=== PATIENT | female | born 2000 | race Caucasian/White ===

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

== ENCOUNTER 2019-07-23 08:21 | Emergency (ER) | payer OTHER ==
[2019-07-23] MEDS ORDERED: BENADRYL 50 MG/ML IV ONE (08:38)
[2019-07-23] MEDS ORDERED: Reglan 10 MG/2 ML IV ONE (08:38)
[2019-07-23] MEDS ORDERED: Sodium Chloride 0.9% 1000 ML 1,000 ML IV STA (08:38)
--- NOTE | 2019-07-23 08:49 | ERPHSYRPT ---
- History of Present Illness Time Seen by Provider: 07/23/19 08:32 Historian: patient Exam Limitations: no limitations Patient Subjective Stated Complaint: Fever, chills, vomiting, nausea, lightheaded for past 2 days, 6 weeks Triage Nursing Assessment: Pt came in with her cousin, vitals wnl, skin N/W/D, afebrile, bilateral upper abdominal pain due to vomiting per pt, no edema Physician History: The patient is a 18-year-old currently 6 weeks 4 days estimated gestational age by transvaginal ultrasound dated July 19, 2019 with an estimated due date of 2019 is currently with a single intrauterine presents with a chief complaint of vomiting. She reports that she has been vomiting for the past 48 hours and had associated symptoms to include headache in addition to a fever and abdominal pain. She reports that her MAXIMUM TEMPERATURE was 101 Fahrenheit and the last time she had a fever was yesterday he is currently afebrile this morning. She nor 7 upper quadrant abdominal pain, consistent mainly the epigastrium that started after the vomiting. She notes having numerous episodes of nonbloody/nonbilious vomiting but denies diarrhea. She was seen at urgent care yesterday and was instructed that if she continues to have vomiting this morning that she should come to the emergency department. Her BUSINESS INTEGRATION MANAGER is Dr. Madhuri Kim. she tried to contact this morning to schedule follow-up with today but was instructed to come to the emergency department for further evaluation and management. The patient is not taking any medications, specifically in time medics for vomiting but reportedly takes vitamins. She denies vaginal discharge and vaginal bleeding is constipation. Currently she does not have a headache nor does she have any neck pain or photophobia. Timing/Duration: day(s) (2) Activities at Onset: none Quality: cramping Abdominal Pain Onset Location: epigastric Pain Radiation: no radiation Severity of Pain-Max: mild Severity of Pain-Current: mild Modifying Factors: Improves With: nothing Associated Symptoms: fever/chills, headache, nausea, vomiting, No back, No chest pain, No diaphoresis, No diarrhea, No shortness of breath, No syncope Allergies/Adverse Reactions: fluconazole [From Diflucan] Adverse Reaction (Verified 07/23/19 08:38) Home Medications: Levothyroxine Sodium [Euthyrox] 50 mcg PO DAILY 07/23/19 [History] Vits W-Ca,Fe,FA(<1Mg) [] 1 each PO DAILY 07/23/19 [History] Pyridoxine HCl (Vitamin B6) [Vitamin B-6] 50 mg PO DAILY 07/23/19 [History] Hx Tetanus, Diphtheria Vaccination/Date Given: Yes Hx Influenza Vaccination/Date Given: Yes (June 2019) Hx Pneumococcal Vaccination/Date Given: No - Review of Systems Constitutional: Fever, Chills Eyes: No Symptoms Ears, Nose, & Throat: Other (Rhinorrhea) Respiratory: No Cough, No Cyanosis, No Dyspnea, No Dyspnea on Exertion (EPSTEIN) Cardiac: No Chest Pain, No Edema, No Palpitations, No Syncope Abdominal/Gastrointestinal: Abdominal Pain, Nausea, Vomiting, Appetite Changes, No Diarrhea, No Constipation, No Hematemesis Genitourinary Symptoms: , No Dysuria, No Frequency, No Hematuria, No Hesitancy, No Flank Pain, No Vaginal Bleeding, No Vaginal Discharge, No Vaginal Itching Musculoskeletal: No Symptoms Skin: No Symptoms Neurological: No Symptoms Psychological: No Symptoms All Other Systems: Reviewed and Negative - Past Medical History Pertinent Past Medical History: Yes Neurological History: Migraines ENT History: No Pertinent History Cardiac History: No Pertinent History Respiratory History: Asthma Endocrine Medical History: No Pertinent History Musculoskeletal History: Fractures GI Medical History: Gallbladder Disease History: No Pertinent History Psycho-Social History: No Pertinent History Female Reproductive Disorders: No Pertinent History Other Medical History: right hip pain chronic - Past Surgical History Past Surgical History: Yes Neuro Surgical History: No Pertinent History Cardiac: No Pertinent History Respiratory: No Pertinent History Gastrointestinal: Cholecystectomy Genitourinary: No Pertinent History Musculoskeletal: Orthopedic Surgery Female Surgical History: No Pertinent History Other Surgical History: right hip - Social History Smoking Status: Never smoker Exposure to second hand smoke: No Drug Use: none Patient Lives Alone: No - Female History Hx Now: Yes Expected Date of Delivery: 03/13/20 - Nursing Vital Signs Nursing Vital Signs: Initial Vital Signs Temperature 97.7 F 07/23/19 08:27 Pulse Rate 97 H 07/23/19 08:27 Blood Pressure 130/85 07/23/19 08:27 O2 Sat by Pulse Oximetry 97 07/23/19 08:27 Pain Scale Pain Intensity 4 - Physical Exam General Appearance: no apparent distress Eye Exam: PERRL/EOMI, eyes nml inspection Ears, Nose, Throat Exam: normal ENT inspection, TMs normal, pharynx normal, moist mucous membranes, No TM abnormal (R), No TM abnormal (L), No pharyngeal erythema, No tonsillar exudate Neck Exam: normal inspection, No meningismus Respiratory Exam: normal breath sounds, lungs clear, airway intact, No chest tenderness, No respiratory distress, No diminished breath sounds, No accessory muscle use, No prolonged expirations Cardiovascular Exam: regular rate/rhythm, normal heart sounds, normal peripheral pulses, capillary refill <2 sec, pulse deficit, No edema Gastrointestinal/Abdomen Exam: soft, tenderness, other (Mild epigastric tenderness), No distention, No mass, No guarding, No ecchymosis, No pulsatile mass, No rebound, No hernia Pelvic Exam: not done Rectal Exam: deferred Back Exam: normal inspection Extremity Exam: normal inspection Neurologic Exam: alert, oriented x 3, cooperative Skin Exam: normal color, warm, dry, No petechiae, No jaundice, No abrasion, No cyanosis, No diaphoresis SpO2 Interpretation: normal SpO2: 97 O2 Delivery: Room Air - Course Nursing assessment & vital signs reviewed: Yes Ordered Tests: Active Orders 24 hr Category Date Time Status IV Insertion STAT Care 07/23/19 08:38 Active BMP Stat Lab 07/23/19 08:38 Completed CBC W DIFF Stat Lab 07/23/19 08:38 Completed Hepatic Function Panel Stat Lab 07/23/19 08:38 Completed LIPASE Stat Lab 07/23/19 08:38 Completed Medication Summary Discontinued Medications Generic Name Dose Route Start Last Admin Trade Name Kush PRN Reason Stop Dose Admin Diphenhydramine HCl 12.5 mg 07/23/19 08:38 07/23/19 09:07 Benadryl 50 Mg/Ml IV 07/23/19 08:39 12.5 mg STAT ONE Administration Diphenhydramine HCl Confirm 07/23/19 09:04 Benadryl 50 Mg/Ml Administered 07/23/19 09:05 Dose 50 mg .ROUTE .STK-MED ONE Sodium Chloride 1,000 mls @ 999 mls/hr 07/23/19 08:38 07/23/19 10:18 Sodium Chloride 0.9% 1000 Ml IV 07/23/19 09:38 Infused .Q1H1M STA Infusion Sodium Chloride Confirm 07/23/19 09:05 Sodium Chloride 0.9% 1000 Ml Administered 07/23/19 09:06 Dose 1,000 mls @ ud .ROUTE .STK-MED ONE Metoclopramide HCl 10 mg 07/23/19 08:38 07/23/19 09:07 Reglan 10 Mg/2 Ml IV 07/23/19 08:39 10 mg STAT ONE Administration Metoclopramide HCl Confirm 07/23/19 09:05 Reglan 10 Mg/2 Ml Administered 07/23/19 09:06 Dose 10 mg .ROUTE .STK-MED ONE Lab/Rad Data: Laboratory Result Diagrams 07/23/19 08:38 07/23/19 08:38 Laboratory Results 07/23/19 07/23/19 Range/Units 08:38 08:38 WBC 8.0 (4.0-10.5) K/mm3 RBC 4.68 (4.1-5.4) M/mm3 Hgb 13.8 (12.0-16.0) gm/dl Hct 40.6 (35-47) % MCV 86.8 (78-100) fl MCH 29.5 (26-32) pg MCHC 34.0 (32-36) g/dl RDW 13.1 (11.5-14.0) % Plt Count 268 (150-450) K/mm3 MPV 10.2 H (6-9.5) fl Gran % 71.8 H (36.0-66.0) % Eos # (Auto) 0.04 (0-0.5) Absolute Lymphs (auto) 1.67 (1.0-4.6) Absolute Monos (auto) 0.53 (0.0-1.3) Lymphocytes % 21.0 L (24.0-44.0) % Monocytes % 6.6 (0.0-12.0) % Eosinophils % 0.5 (0.00-5.0) % Basophils % 0.1 (0.0-0.4) % Absolute Granulocytes 5.72 (1.4-6.9) Basophils # 0.01 (0-0.4) Sodium 140 (137-145) mmol/L Potassium 3.9 (3.5-5.1) mmol/L Chloride 107 (98-107) mmol/L Carbon Dioxide 22 (22-30) mmol/L Anion Gap 14.6 (5-15) MEQ/L BUN 12 (7-17) mg/dL Creatinine 0.53 (0.52-1.04) mg/dL Estimated GFR > 60.0 ML/MIN Glucose 96 (74-106) mg/dL Calcium 9.8 (8.4-10.2) mg/dL Total Bilirubin 0.70 (0.2-1.3) mg/dL Direct Bilirubin 0.3 (0.0-0.4) mg/dL AST 32 (14-36) U/L ALT 35 (0-35) U/L Alkaline Phosphatase 76 (38-126) U/L Serum Total Protein 7.9 (6.3-8.2) g/dL Albumin 4.5 (3.5-5.0) g/dL Lipase 158 (23-300) U/L - Progress Progress: improved Progress Note: 07/23/19 09:02 The patient is nontoxic in appearance. Her abdominal exam is relatively benign. I suspect the patient's vomiting he complains of a fever and headache are likely viral in origin she has no signs of meningismus. Currently, she is afebrile emergency department and otherwise has normal vitals with the exception of some elevated blood pressure which may be related to anxiety or exertional given and she wishes return to the emergency department to be evaluated. I went and checked screening labs to include CBC, BMP LFTs and lipase to make sure she is no evidence of any other joint abnormalities. In the meantime, the demonstrated fluids in the form of normal saline antimanic in the form of Reglan and Benadryl. I suspect the patient will likely end up being discharged from emergency department to follow with her BUSINESS INTEGRATION MANAGER as an outpatient. 07/23/19 09:59 the patient was reassessed and her nausea completely resolved. Her abdominal pain has improved and on reassessment she had no significant tenderness, specifically with no right lower quadrant tenderness to suggest appendicitis. I'll discharge the patient with a prescription for Vivienne capsules, Reglan, and Vit B6 and instructed to follow up as scheduled with her BUSINESS INTEGRATION MANAGER that is reported later today at 11:15 AM. 07/23/19 17:25 Counseled pt/family regarding: lab results, diagnosis, need for follow-up - Departure Departure Disposition: Home Clinical Impression: Nausea and vomiting during , Viral syndrome Condition: Stable Critical Care Time: No Referrals: CASSI MAYERS [Primary Care Provider] - Instructions: Nausea -- Adult, Vomiting -- Adult Additional Instructions: Please follow up with her OB/2 and scheduled later today at 11:15, specifically Dr. Dhaliwal. Please refer to fluid intake her medicine as prescribed to include your vitamins. Plan of Treatment: See progress section of note for MDM. Patient likely suffering from N/V secondary to morning sickness superimposed with possible viral GI infection that is now resolving. Labs reviewed and relatively reassuring. Prescriptions: Metoclopramide HCl 10 mg [Reglan 10 MG] 10 mg PO [id number] PRN #10 tablet PRN Reason: nausea and vomiting Vivienne Root/Pyridoxine HCl(B6) [Vicectin 25-325 mg Capsule] 1 each PO Q6-8HPRN PRN #60 capsule PRN Reason: Anxiety
[2019-07-23] MEDS ORDERED: BENADRYL 50 MG/ML ONE (09:04)
[2019-07-23] MEDS ORDERED: Sodium Chloride 0.9% 1000 ML 1,000 ML ONE (09:05)
[2019-07-23] MEDS ORDERED: Reglan 10 MG/2 ML ONE (09:05)
[2019-07-23 09:09] LABS: Absolute Neutrophil Ct (ANC) 5.72 (1.4-6.9); BASOPHIL % 0.1 % (0.0-0.4); Basophil (Absolute #) 0.01 (0-0.4); Eosinophil % 0.5 % (0.00-5.0); Eosinophil (Absolute #) 0.04 (0-0.5); Hematocrit 40.6 % (35-47); Hemoglobin 13.8 gm/dl (12.0-16.0); Lymphocyte (Absolute #) 1.67 (1.0-4.6); Mean Cell Volume 86.8 fl (78-100); Mean Corpuscular Hemoglobin 29.5 pg (26-32); Mean Platelet Volume 10.2 fl (6-9.5); Monocyte (Absolute #) 0.53 (0.0-1.3); Monocytes % 6.6 % (0.0-12.0); Neutrophil % 71.8 % (36.0-66.0); Platelet Count 268 K/mm3 (150-450); Red Blood Count 4.68 M/mm3 (4.1-5.4); Red Cell Distribution Width 13.1 % (11.5-14.0)
[2019-07-23 09:37] LABS: ALBUMIN 4.5 g/dL (3.5-5.0); ALKALINE PHOSPHATASE 76 U/L (38-126); ANION GAP 14.6 MEQ/L (5-15); BLOOD UREA NITROGEN 12 mg/dL (7-17); CHLORIDE 107 mmol/L (98-107); Calcium 9.8 mg/dL (8.4-10.2); Carbon Dioxide 22 mmol/L (22-30); Creatinine 1 0.53 mg/dL (0.52-1.04); Direct Bilirubin 0.3 mg/dL (0.0-0.4); Glucose 96 mg/dL (74-106); LIPASE 158 U/L (23-300); Potassium 3.9 mmol/L (3.5-5.1); SGOT/AST 32 U/L (14-36); SGPT/ALT 35 U/L (0-35); SODIUM 140 mmol/L (137-145); Total Protein 7.9 g/dL (6.3-8.2)
[2019-07-23 10:05] VITALS: O2SAT 97
[2019-07-23 10:14] VITALS: BP 109/70; PULSE 84
== END 2019-07-23 10:18 | disposition home or self-care (01) ==
LOC: ED 08:21
DX: O21.0 Mild hyperemesis gravidarum (principal); R42 Dizziness and giddiness; B34.9 Viral infection, unspecified
CPT/HCPCS: 36415; 80048; 80076; 83690; 85025; 96360; 96374; 96375; 99284; J1200

== ENCOUNTER 2019-09-27 14:14 | Emergency (ER) | payer OTHER ==
[2019-09-27 14:31] VITALS: BP 129/78; O2SAT 99
[2019-09-27] MEDS ORDERED: Sodium Chloride 0.9% 1000 ML 1,000 ML IV STA ×2 (14:37→14:44)
[2019-09-27] MEDS ORDERED: Sodium Chloride 0.9% 1000 ML 1,000 ML ONE ×2 (14:41→15:59)
--- NOTE | 2019-09-27 14:42 | ERPHSYRPT ---
- History of Present Illness Time Seen by Provider: 09/27/19 14:30 Historian: patient Exam Limitations: no limitations Patient Subjective Stated Complaint: Pt is 16 weeks and began having lower abdominal cramping last night which has continued today, rates pain 6/10, denies bleeding, reports having a significant amount of white discharge, expected date of delivery 03/13/[address] Patiño Triage Nursing Assessment: Pt brought to the ER by her cousin, first , denies sexual intercourse in the past 24 hours, vitals wnl, rates pain 6/10 in lower abdomen Physician History: Patient is a at 16 weeks who comes in with a complaint of intermittent abdominal cramping for the past 1 day. Patient has not been evaluated or treated for symptoms. Patient discussed her symptoms with her OB' s nurse who recommended she come to the emergency department Timing/Duration: yesterday Activities at Onset: none Quality: cramping Abdominal Pain Onset Location: generalized abdomen Pain Radiation: no radiation Severity of Pain-Max: moderate Severity of Pain-Current: mild Modifying Factors: Improves With: nothing Associated Symptoms: No back, No chest pain, No diaphoresis, No diarrhea, No fever/chills, No fatigue, No headache, No heartburn, No loss of appetite, No nausea, No neck pain, No rash, No shortness of breath, No syncope, No vomiting, No weakness Previous symptoms: no prior history, no recent treatment Allergies/Adverse Reactions: fluconazole [From Diflucan] Adverse Reaction (Verified 09/27/19 14:21) Home Medications: Vits W-Ca,Fe,FA(<1Mg) [] 1 each PO DAILY 07/23/19 [History] Hx Tetanus, Diphtheria Vaccination/Date Given: Yes Hx Influenza Vaccination/Date Given: Yes (June 2019) Hx Pneumococcal Vaccination/Date Given: No - Review of Systems Constitutional: No Fever, No Chills Eyes: No Symptoms, No Eye Pain, No Vision Changes Ears, Nose, & Throat: No Symptoms, No Nose Congestion, No Mouth Pain, No Mouth Swelling Respiratory: No Cough, No Dyspnea Cardiac: No Chest Pain, No Edema, No Syncope Abdominal/Gastrointestinal: Abdominal Pain, No Nausea, No Vomiting, No Diarrhea , No Hematemesis, No Hematochezia, No Melena Genitourinary Symptoms: , Vaginal Discharge, No Dysuria, No Frequency, No Hematuria, No Flank Pain, No Vaginal Bleeding, No Vaginal Itching Musculoskeletal: No Back Pain, No Neck Pain Skin: No Rash Neurological: No Dizziness, No Focal Weakness, No Sensory Changes Psychological: No Symptoms, No Emotional Lability Endocrine: No Symptoms, No Polydipsia Hematologic/Lymphatic: No Easy Bleeding, No Easy Bruising All Other Systems: Reviewed and Negative - Past Medical History Pertinent Past Medical History: Yes Neurological History: Migraines ENT History: No Pertinent History Cardiac History: No Pertinent History Respiratory History: Asthma Endocrine Medical History: No Pertinent History Musculoskeletal History: Fractures GI Medical History: Gallbladder Disease History: No Pertinent History Psycho-Social History: No Pertinent History Female Reproductive Disorders: No Pertinent History Other Medical History: right hip pain chronic - Past Surgical History Past Surgical History: Yes Neuro Surgical History: No Pertinent History Cardiac: No Pertinent History Respiratory: No Pertinent History Gastrointestinal: Cholecystectomy Genitourinary: No Pertinent History Musculoskeletal: Orthopedic Surgery Female Surgical History: No Pertinent History Other Surgical History: right hip - Social History Smoking Status: Never smoker Exposure to second hand smoke: No Drug Use: none Patient Lives Alone: No - Female History Hx Now: Yes Expected Date of Delivery: 03/13/20 - Nursing Vital Signs Nursing Vital Signs: Initial Vital Signs Temperature 97.6 F 09/27/19 14:23 Pulse Rate 105 H 09/27/19 14:23 Blood Pressure 129/78 09/27/19 14:23 O2 Sat by Pulse Oximetry 99 09/27/19 14:23 Pain Scale Pain Intensity 6 - Physical Exam General Appearance: no apparent distress, alert Eye Exam: PERRL/EOMI, eyes nml inspection, No scleral icterus Ears, Nose, Throat Exam: normal ENT inspection, pharynx normal, moist mucous membranes Neck Exam: normal inspection, non-tender, supple, full range of motion Respiratory Exam: normal breath sounds, lungs clear, airway intact, No respiratory distress, No diminished breath sounds, No accessory muscle use, No crackles/rales, No rhonchi, No wheezing Cardiovascular Exam: regular rate/rhythm, normal heart sounds, capillary refill <2 sec Gastrointestinal/Abdomen Exam: soft, normal bowel sounds, other (Gravid abdomen consistent with dates), No tenderness, No guarding Pelvic Exam: normal external exam, vaginal discharge, other (chaperoned by Karime Matute RN), No cervical motion tenderness (Cervix is closed), No vaginal bleeding Rectal Exam: normal exam, normal rectal tone, No hemorrhoids, No black stool, No blood Back Exam: normal inspection, normal range of motion, No CVA tenderness, No vertebral tenderness Extremity Exam: normal inspection, normal range of motion, pelvis stable, No calf tenderness, No swelling Neurologic Exam: alert, oriented x 3, cooperative, statement request clerk II-XII nml as tested, normal mood/affect, sensation nml, No motor deficits Skin Exam: normal color, warm, dry, No rash, No petechiae, No jaundice, No cyanosis SpO2 Interpretation: normal SpO2: 99 O2 Delivery: Room Air - Course Nursing assessment & vital signs reviewed: Yes - Radiology Ultrasound Exam OB Ultrasound: Other (from 07/19/2019 by radiologist interpretation: Transvaginal ultrasound study reveals a single live intrauterine fetus with a crown-rump length suggesting a gestational age of 6 weeks 0 days with an estimated due date of 03/13/2020. cardiac activity was identified with a heart rate of 115 bpm.2. 1.8 cm in diameter oval-shaped corpus luteal cyst within the maternal right ovary) Pelvis Ultrasound: Other (Per radiologist interpretation: Single viable intrauterine with mean gestational age of 16 weeks 0 days. Normal progression of . No new/acute findings. Posterior placenta without abruption/ previa. Cervical length is 2.8 cm. heart rate is 149 bpm.) Ordered Tests: Active Orders 24 hr Category Date Time Status Heart Tones-ED STAT Care 09/27/19 14:38 Active IV Insertion STAT Care 09/27/19 14:37 Active Regular Diet Diet 09/27/19 Dinner Active OB >14 WKS 1st GESTATION [US] Stat Exams 09/27/19 15:54 Completed CBC W DIFF Stat Lab 09/27/19 15:00 Completed CMP Stat Lab 09/27/19 15:00 Completed LIPASE Stat Lab 09/27/19 15:00 Completed Lactic Acid Stat Lab 09/27/19 14:37 Completed MAGNESIUM Stat Lab 09/27/19 15:00 Completed PROTIME WITH INR Stat Lab 09/27/19 15:00 Completed UA W/RFX UR CULTURE Stat Lab 09/27/19 14:48 Completed Wet Prep Stat Lab 09/27/19 15:15 Completed Medication Summary Discontinued Medications Generic Name Dose Route Start Last Admin Trade Name Kush PRN Reason Stop Dose Admin Sodium Chloride 1,000 mls @ 999 mls/hr 09/27/19 14:37 09/27/19 15:55 Sodium Chloride 0.9% 1000 Ml IV 09/27/19 15:37 Infused .Q1H1M STA Infusion Sodium Chloride Confirm 09/27/19 14:41 Sodium Chloride 0.9% 1000 Ml Administered 09/27/19 14:42 Dose 1,000 mls @ ud .ROUTE .STK-MED ONE Sodium Chloride 1,000 mls @ 999 mls/hr 09/27/19 14:44 09/27/19 15:59 Sodium Chloride 0.9% 1000 Ml IV 09/27/19 15:44 999 mls/hr .Q1H1M STA Administration Sodium Chloride Confirm 09/27/19 15:59 Sodium Chloride 0.9% 1000 Ml Administered 09/27/19 16:00 Dose 1,000 mls @ ud .ROUTE .STK-MED ONE Lab/Rad Data: Laboratory Result Diagrams 09/27/19 15:00 09/27/19 15:00 Laboratory Results 09/27/19 09/27/19 09/27/19 Range/Units 15:15 15:00 15:00 WBC (4.0-10.5) K/mm3 RBC (4.1-5.4) M/mm3 Hgb (12.0-16.0) gm/dl Hct (35-47) % MCV (78-100) fl MCH (26-32) pg MCHC (32-36) g/dl RDW (11.5-14.0) % Plt Count (150-450) K/mm3 MPV (7.5-11.0) fl Gran % (36.0-66.0) % Eos # (Auto) (0-0.5) Absolute Lymphs (auto) (1.0-4.6) Absolute Monos (auto) (0.0-1.3) Lymphocytes % (24.0-44.0) % Monocytes % (0.0-12.0) % Eosinophils % (0.00-5.0) % Basophils % (0.0-0.4) % Absolute Granulocytes (1.4-6.9) Basophils # (0-0.4) PT 11.6 (9.95-12.35) SECONDS INR 1.03 (0.8-3.0) Sodium (137-145) mmol/L Potassium (3.5-5.1) mmol/L Chloride (98-107) mmol/L Carbon Dioxide (22-30) mmol/L Anion Gap (5-15) MEQ/L BUN (7-17) mg/dL Creatinine (0.52-1.04) mg/dL Estimated GFR ML/MIN Glucose (74-106) mg/dL Lactic Acid (0.4-2.0) Calcium (8.4-10.2) mg/dL Magnesium 1.9 (1.6-2.3) mg/dL Total Bilirubin (0.2-1.3) mg/dL AST (14-36) U/L ALT (0-35) U/L Alkaline Phosphatase (38-126) U/L Serum Total Protein (6.3-8.2) g/dL Albumin (3.5-5.0) g/dL Lipase (23-300) U/L Urine Color (YELLOW) Urine Appearance (CLEAR) Urine pH (5-6) Ur Specific Norden (1.005-1.025) Urine Protein (Negative) Urine Ketones (NEGATIVE) Urine Blood (0-5) Serg/ul Urine Nitrite (NEGATIVE) Urine Bilirubin (NEGATIVE) Urine Urobilinogen (0-1) mg/dL Ur Leukocyte Esterase (NEGATIVE) Urine WBC (Auto) (0-5) /HPF Urine RBC (Auto) (0-2) /HPF U Hyaline Cast (Auto) (0-2) /LPF U Epithel Cells (Auto) (FEW) /HPF Urine Bacteria (Auto) (NEGATIVE) /HPF Urine Mucus (Auto) (NEGATIVE) /HPF Urine Culture Reflexed (NO) Urine Glucose (NEGATIVE) mg/dL WBC (Wet Prep) Moderate RBC (Wet Prep) Moderate Epi Cells (Wet Prep) Moderate Bacteria (Wet Prep) Moderate Clue Cells (Wet Prep) Rare Trichomonas (Wet Prep) None Seen Budding Yeast (Wet Prp) Few 09/27/19 09/27/19 09/27/19 Range/Units 15:00 15:00 14:48 WBC 8.7 (4.0-10.5) K/mm3 RBC 4.30 (4.1-5.4) M/mm3 Hgb 13.1 (12.0-16.0) gm/dl Hct 37.7 (35-47) % MCV 87.7 (78-100) fl MCH 30.5 (26-32) pg MCHC 34.7 (32-36) g/dl RDW 13.3 (11.5-14.0) % Plt Count 236 (150-450) K/mm3 MPV 10.2 (7.5-11.0) fl Gran % 64.8 (36.0-66.0) % Eos # (Auto) 0.11 (0-0.5) Absolute Lymphs (auto) 2.33 (1.0-4.6) Absolute Monos (auto) 0.61 (0.0-1.3) Lymphocytes % 26.8 (24.0-44.0) % Monocytes % 7.0 (0.0-12.0) % Eosinophils % 1.3 (0.00-5.0) % Basophils % 0.1 (0.0-0.4) % Absolute Granulocytes 5.62 (1.4-6.9) Basophils # 0.01 (0-0.4) PT (9.95-12.35) SECONDS INR (0.8-3.0) Sodium 140 (137-145) mmol/L Potassium 3.6 (3.5-5.1) mmol/L Chloride 107 (98-107) mmol/L Carbon Dioxide 23 (22-30) mmol/L Anion Gap 14.0 (5-15) MEQ/L BUN 3 L (7-17) mg/dL Creatinine 0.44 L (0.52-1.04) mg/dL Estimated GFR > 60.0 ML/MIN Glucose 61 L (74-106) mg/dL Lactic Acid (0.4-2.0) Calcium 9.9 (8.4-10.2) mg/dL Magnesium (1.6-2.3) mg/dL Total Bilirubin 0.40 (0.2-1.3) mg/dL AST 22 (14-36) U/L ALT 16 (0-35) U/L Alkaline Phosphatase 77 (38-126) U/L Serum Total Protein 7.6 (6.3-8.2) g/dL Albumin 4.7 (3.5-5.0) g/dL Lipase 101 (23-300) U/L Urine Color YELLOW (YELLOW) Urine Appearance CLEAR (CLEAR) Urine pH 6.0 (5-6) Ur Specific Norden 1.006 (1.005-1.025) Urine Protein NEGATIVE (Negative) Urine Ketones NEGATIVE (NEGATIVE) Urine Blood NEGATIVE (0-5) Serg/ul Urine Nitrite NEGATIVE (NEGATIVE) Urine Bilirubin NEGATIVE (NEGATIVE) Urine Urobilinogen NEGATIVE (0-1) mg/dL Ur Leukocyte Esterase TRACE (NEGATIVE) Urine WBC (Auto) NONE (0-5) /HPF Urine RBC (Auto) 0-2 (0-2) /HPF U Hyaline Cast (Auto) 0-2 (0-2) /LPF U Epithel Cells (Auto) RARE (FEW) /HPF Urine Bacteria (Auto) NONE (NEGATIVE) /HPF Urine Mucus (Auto) SLIGHT (NEGATIVE) /HPF Urine Culture Reflexed NO (NO) Urine Glucose NEGATIVE (NEGATIVE) mg/dL WBC (Wet Prep) RBC (Wet Prep) Epi Cells (Wet Prep) Bacteria (Wet Prep) Clue Cells (Wet Prep) Trichomonas (Wet Prep) Budding Yeast (Wet Prp) 09/27/19 Range/Units 14:37 WBC (4.0-10.5) K/mm3 RBC (4.1-5.4) M/mm3 Hgb (12.0-16.0) gm/dl Hct (35-47) % MCV (78-100) fl MCH (26-32) pg MCHC (32-36) g/dl RDW (11.5-14.0) % Plt Count (150-450) K/mm3 MPV (7.5-11.0) fl Gran % (36.0-66.0) % Eos # (Auto) (0-0.5) Absolute Lymphs (auto) (1.0-4.6) Absolute Monos (auto) (0.0-1.3) Lymphocytes % (24.0-44.0) % Monocytes % (0.0-12.0) % Eosinophils % (0.00-5.0) % Basophils % (0.0-0.4) % Absolute Granulocytes (1.4-6.9) Basophils # (0-0.4) PT (9.95-12.35) SECONDS INR (0.8-3.0) Sodium (137-145) mmol/L Potassium (3.5-5.1) mmol/L Chloride (98-107) mmol/L Carbon Dioxide (22-30) mmol/L Anion Gap (5-15) MEQ/L BUN (7-17) mg/dL Creatinine (0.52-1.04) mg/dL Estimated GFR ML/MIN Glucose (74-106) mg/dL Lactic Acid 1.5 (0.4-2.0) Calcium (8.4-10.2) mg/dL Magnesium (1.6-2.3) mg/dL Total Bilirubin (0.2-1.3) mg/dL AST (14-36) U/L ALT (0-35) U/L Alkaline Phosphatase (38-126) U/L Serum Total Protein (6.3-8.2) g/dL Albumin (3.5-5.0) g/dL Lipase (23-300) U/L Urine Color (YELLOW) Urine Appearance (CLEAR) Urine pH (5-6) Ur Specific Norden (1.005-1.025) Urine Protein (Negative) Urine Ketones (NEGATIVE) Urine Blood (0-5) Serg/ul Urine Nitrite (NEGATIVE) Urine Bilirubin (NEGATIVE) Urine Urobilinogen (0-1) mg/dL Ur Leukocyte Esterase (NEGATIVE) Urine WBC (Auto) (0-5) /HPF Urine RBC (Auto) (0-2) /HPF U Hyaline Cast (Auto) (0-2) /LPF U Epithel Cells (Auto) (FEW) /HPF Urine Bacteria (Auto) (NEGATIVE) /HPF Urine Mucus (Auto) (NEGATIVE) /HPF Urine Culture Reflexed (NO) Urine Glucose (NEGATIVE) mg/dL WBC (Wet Prep) RBC (Wet Prep) Epi Cells (Wet Prep) Bacteria (Wet Prep) Clue Cells (Wet Prep) Trichomonas (Wet Prep) Budding Yeast (Wet Prp) - Progress Progress: improved Progress Note: 09/27/19 17:00 Patient is able to tolerate beverage and food here in the emergency department. Patient is alert, no dizziness, no shortness of breath, no palpitations and has had no abdominal cramping during her monitoring time in the emergency department. Patient had no tenderness on her abdomen on examination. Patient is a G1, P0 at 16 weeks who comes in complaint abdominal cramping and vaginal discharge the past day. Her evaluation does show any significant abnormalities on lab work or urinalysis or on wet prep except for slightly low glucose. Patient did not have any altered mental status start time the emergency room and was able to eat and drink without any difficulty. Patient had slightly elevated pulse when she came in, which resolved with IV fluids here in the emergency department. I discussed the patient with her OB, Dr. Patiño, and patient does not need any further evaluation or treatment emergency room and does not need to be admitted to labor and delivery at this time he can be discharged home with instructions on pelvic rest, works use of the weekend, and follow-up with Dr. Patiño in her office on 09/30/2019. I reviewed the plan with the patient and she was amenable to this and answered all question for patient and her family members who are with her in the emergency department. Discussed with Dr.: Natan (At 16: 43, discussed the patient with Dr. Bowers, patient's OB. Dr. Bowers feels that patient is not require any further evaluation in the emergency department or on labor and delivery and can go home with work excuse for the next 3 days, pelvic rest, and follow-up in her office on 09/30/2019. In discussion with Dr. Barron about the low glucose, we feel that it is not significant at this time and she is asymptomatic in that regard and we do not feel that is causing her cramping at this time.) Counseled pt/family regarding: lab results, diagnosis, need for follow-up, rad results - Departure Departure Disposition: Home Clinical Impression: Abdominal cramping affecting , antepartum, Vaginal discharge during in second trimester, Hypoglycemia, Elevated blood pressure reading without diagnosis of hypertension Condition: Good Critical Care Time: No Referrals: CASSI MAYERS [ACTIVE STAFF] - SANDRA PATIÑO [Primary Care Provider] - Follow Up with PCP/3 days Instructions: Stomach Pain in Early , Vaginal Discharge in Adults, Low Blood Sugar, Adult (DC), DASH Diet Additional Instructions: Complete pelvic rest which means nothing goes into the vagina including any sanitary pads until seen by Dr. Azar. Return immediately back to the emergency department if any worsening abdominal pain, new vaginal bleeding, worsening discharge, new leakage of fluids, fever, back pain, painful urination , shortness of breath or any localized abdominal pain at any time for immediate reevaluation in the emergency department. Forms: Work/School Release Form
[2019-09-27 15:12] LABS: Appearance CLEAR (CLEAR); Bilirubin NEGATIVE (NEGATIVE); Blood NEGATIVE Ery/ul (0-5); Epithelial Cells RARE /HPF (FEW); Glucose NEGATIVE (NEGATIVE); Hyaline Casts 0-2 /LPF (0-2); Ketones NEGATIVE (NEGATIVE); Leukocyte Esterase TRACE (NEGATIVE); Mucus SLIGHT /HPF (NEGATIVE); Nitrite NEGATIVE (NEGATIVE); Protein,Urine Dip NEGATIVE (Negative); RBC 0-2 /HPF (0-2); Specific Gravity 1.006 (1.005-1.025); Urobilinogen NEGATIVE mg/dL (0-1)
[2019-09-27 15:22] LABS: Absolute Neutrophil Ct (ANC) 5.62 (1.4-6.9); BASOPHIL % 0.1 % (0.0-0.4); Basophil (Absolute #) 0.01 (0-0.4); Eosinophil % 1.3 % (0.00-5.0); Eosinophil (Absolute #) 0.11 (0-0.5); Hematocrit 37.7 % (35-47); Hemoglobin 13.1 gm/dl (12.0-16.0); Lymphocyte (Absolute #) 2.33 (1.0-4.6); Lymphocytes % 26.8 % (24.0-44.0); Mean Cell Volume 87.7 fl (78-100); Mean Corpuscular Hemoglobin 30.5 pg (26-32); Mean Corpuscular Hgb Concent. 34.7 g/dl (32-36); Mean Platelet Volume 10.2 fl (7.5-11.0); Monocyte (Absolute #) 0.61 (0.0-1.3); Neutrophil % 64.8 % (36.0-66.0); Platelet Count 236 K/mm3 (150-450); Red Cell Distribution Width 13.3 % (11.5-14.0); White Blood Count 8.7 K/mm3 (4.0-10.5)
[2019-09-27 15:32] LABS: INR 1.03 (0.8-3.0); PROTIME 11.6 SECONDS (9.95-12.35)
[2019-09-27 15:38] LABS: ALBUMIN 4.7 g/dL (3.5-5.0); ALKALINE PHOSPHATASE 77 U/L (38-126); BLOOD UREA NITROGEN 3 mg/dL (7-17); CHLORIDE 107 mmol/L (98-107); Calcium 9.9 mg/dL (8.4-10.2); Carbon Dioxide 23 mmol/L (22-30); Creatinine 1 0.44 mg/dL (0.52-1.04); Glucose 61 mg/dL (74-106); LIPASE 101 U/L (23-300); Potassium 3.6 mmol/L (3.5-5.1); SGOT/AST 22 U/L (14-36); SGPT/ALT 16 U/L (0-35); SODIUM 140 mmol/L (137-145); Total Protein 7.6 g/dL (6.3-8.2)
--- NOTE | 2019-09-27 16:05 | XRAY ---
Indication: Cramping. Two-dimensional OB ultrasound performed. Comparison: July 19, 2019. Again there is a single viable intrauterine in the breech presentation. heart rate is 149 BPM. Posterior placenta without abruption/previa. Cervical length is 2.8 cm. BPD measures 3.22 cm corresponding to 16 weeks 0 days. HC measures 12.01cm corresponding to 16 weeks 0 days. AC measures 9.77 cm corresponding to 15 weeks 6 days. FL measures 1.95 cm correspond to 15 weeks 6 days. CORNELIO is 10.9 cm. Impression: Again single viable intrauterine with mean gestational age 16 weeks 0 days. Normal progression of . No new/acute findings.
[2019-09-27 16:34] LABS: Bacteria Moderate; Clue Cells Rare; Red Blood Cells Moderate; Trichomonas None Seen; White Blood Cells Moderate; Yeast Few
[2019-09-27 17:14] LABS: CHLAMYDIA DNA NEGATIVE (NEGATIVE); GC DNA Probe NEGATIVE (NEGATIVE)
[2019-09-27 17:28] VITALS: PULSE 95
== END 2019-09-27 17:33 | disposition home or self-care (01) ==
LOC: ED 14:14
DX: O26.892 Other specified pregnancy related conditions, second trimester (principal); R10.9 Unspecified abdominal pain; N89.8 Other specified noninflammatory disorders of vagina; E16.2 Hypoglycemia, unspecified; R30.0 Dysuria
CPT/HCPCS: 36415; 76805; 80053; 81001; 83605; 83690; 83735; 85025; 85610; 87210; 87491; 87591; 96360; 96361; 99284

== ENCOUNTER 2020-01-09 15:38 | Observation (INO) | payer OTHER ==
[2020-01-09 16:18] LABS: Absolute Neutrophil Ct (ANC) 7.71 (1.4-6.9); BASOPHIL % 0.1 % (0.0-0.4); Basophil (Absolute #) 0.01 (0-0.4); Eosinophil % 1.5 % (0.00-5.0); Eosinophil (Absolute #) 0.16 (0-0.5); Hematocrit 32.5 % (35-47); Hemoglobin 10.9 gm/dl (12.0-16.0); Lymphocyte (Absolute #) 2.01 (1.0-4.6); Lymphocytes % 18.9 % (24.0-44.0); Mean Corpuscular Hemoglobin 30.2 pg (26-32); Mean Corpuscular Hgb Concent. 33.5 g/dl (32-36); Mean Platelet Volume 9.6 fl (7.5-11.0); Monocyte (Absolute #) 0.75 (0.0-1.3); Neutrophil % 72.5 % (36.0-66.0); Platelet Count 227 K/mm3 (150-450); Red Blood Count 3.61 M/mm3 (4.1-5.4); White Blood Count 10.6 K/mm3 (4.0-10.5)
[2020-01-09 17:13] LABS: ALBUMIN 3.9 g/dL (3.5-5.0); ALKALINE PHOSPHATASE 105 U/L (38-126); ANION GAP 14.7 MEQ/L (5-15); BLOOD UREA NITROGEN 11 mg/dL (7-17); CHLORIDE 103 mmol/L (98-107); Calcium 9.5 mg/dL (8.4-10.2); Carbon Dioxide 23 mmol/L (22-30); Creatinine 1 0.55 mg/dL (0.52-1.04); Glucose 67 mg/dL (74-106); Potassium 3.8 mmol/L (3.5-5.1); SGOT/AST 40 U/L (14-36); SGPT/ALT 25 U/L (0-35); SODIUM 137 mmol/L (137-145); Total Protein 6.9 g/dL (6.3-8.2)
[2020-01-09 17:20] VITALS: PULSE 104
[2020-01-09 18:28] VITALS: BP 133/86
[2020-01-10 17:51] LABS: 24 HR TOT. PROTEIN CALCULATION 0.3 GM/DAY (0.04-0.15)
== END 2020-01-09 19:05 | disposition home or self-care (01) ==
LOC: OB 15:38
PROVIDERS: ADMIT Family Medicine; ATTEND Family Medicine
DX: Z34.03 Encounter for supervision of normal first pregnancy, third trimester (principal)
CPT/HCPCS: 36415; 80053; 81050; 84156; 84550; 85025; G0378

== ENCOUNTER 2020-01-24 19:02 | Observation (INO) | payer OTHER ==
[2020-01-24 19:48] VITALS: O2SAT 98
[2020-01-24 20:19] LABS: Appearance CLEAR (CLEAR); Bilirubin NEGATIVE (NEGATIVE); Blood NEGATIVE Ery/ul (0-5); Epithelial Cells RARE /HPF (FEW); Glucose NEGATIVE (NEGATIVE); Ketones NEGATIVE (NEGATIVE); Leukocyte Esterase SMALL (NEGATIVE); Nitrite NEGATIVE (NEGATIVE); Protein,Urine Dip NEGATIVE (Negative); Specific Gravity 1.002 (1.005-1.025); Urobilinogen NEGATIVE mg/dL (0-1); WBC 0-2 /HPF (0-5)
[2020-01-24] MEDS ORDERED: Lactated Ringers 1,000 ML IV ONE ×2 (20:38→20:40)
[2020-01-24] MEDS ORDERED: TYLENOL EXTRA STRENGTH 500 MG PO STA (20:39)
[2020-01-24] MEDS ORDERED: TYLENOL EXTRA STRENGTH 500 MG ONE (20:41)
[2020-01-24 22:42] VITALS: BP 114/74; PULSE 90
== END 2020-01-24 22:11 | disposition home or self-care (01) ==
LOC: OB 19:02
PROVIDERS: ADMIT Family Medicine; ATTEND Family Medicine
DX: Z34.03 Encounter for supervision of normal first pregnancy, third trimester (principal)
CPT/HCPCS: 81001; G0378; A9270-GY

== ENCOUNTER 2020-01-28 09:51 | Observation (INO) | payer OTHER ==
--- NOTE | 2020-01-28 17:07 | XRAY ---
Indication: Evaluate CORNELIO. Limited OB ultrasound performed to evaluate CORNELIO. Four-quadrant CORNELIO is 13.8 cm.
== END 2020-01-28 10:45 | disposition home or self-care (01) ==
LOC: OB 09:51
PROVIDERS: ADMIT Family Medicine; ATTEND Family Medicine
DX: Z34.03 Encounter for supervision of normal first pregnancy, third trimester (principal)
CPT/HCPCS: 59025; 76815; G0378

== ENCOUNTER 2020-02-03 15:48 | Observation (INO) | payer OTHER ==
[2020-02-03] MEDS ORDERED: Sodium Chloride 0.9% 1000 ML 1,000 ML IV STA (17:04)
[2020-02-03] MEDS ORDERED: Celestone Soluspan 6MG/ML IM ONE (17:07)
[2020-02-03] MEDS ORDERED: OMNIPEN 2 GM / NACL 100ML 100 ML IV SCH (17:15)
[2020-02-03] MEDS ORDERED: OMNIPEN 2 GM IV SCH (17:15)
[2020-02-03 18:33] LABS: Appearance SLIGHTLY CLOUDY (CLEAR); Bacteria RARE /HPF (NEGATIVE); Bilirubin NEGATIVE (NEGATIVE); Blood NEGATIVE Ery/ul (0-5); Epithelial Cells RARE /HPF (FEW); Glucose NEGATIVE (NEGATIVE); Ketones TRACE (NEGATIVE); Leukocyte Esterase LARGE (NEGATIVE); Nitrite NEGATIVE (NEGATIVE); Protein,Urine Dip NEGATIVE (Negative); Specific Gravity 1.014 (1.005-1.025); Urobilinogen NEGATIVE mg/dL (0-1)
[2020-02-03 18:46] LABS: Amphetamine,Urine NEGATIVE (NEGATIVE); Barbiturate,Urine NEGATIVE (NEGATIVE); Benzodiazepine,Urine NEGATIVE (NEGATIVE); Cocaine,Urine NEGATIVE (NEGATIVE); Methadone,Urine NEGATIVE (NEGATIVE); Opiate,Urine NEGATIVE (NEGATIVE); PCP,Urine NEGATIVE (NEGATIVE); THC,Urine NEGATIVE (NEGATIVE)
[2020-02-03] MEDS: Lactated Ringers 1,000 ML IV SCH (19:25)
[2020-02-03 19:58] LABS: CHLAMYDIA DNA DETECTED (NEGATIVE); GC DNA Probe NOT DETECTED (NEGATIVE)
[2020-02-03] MEDS ORDERED: ROCEPHIN 1 Gm-D5w 50 ml Bag** 1 G/50 ML IVPB IV ONE ×2 (20:00→20:10)
[2020-02-03] MEDS ORDERED: ROCEPHIN 1 Gm-D5w 50 ml Bag** 1 G/50 ML IVPB IV SCH (20:07)
[2020-02-03] MEDS ORDERED: PROCARDIA 10 MG PO ONE (20:07)
[2020-02-03] MEDS ORDERED: BRETHINE 1 MG/ML SQ ONE (21:15)
[2020-02-03 23:32] VITALS: O2SAT 98
[2020-02-04] MEDS: Lactated Ringers 1,000 ML IV SCH (04:30)
--- NOTE | 2020-02-04 08:40 | XRAY ---
Indication: well-being. Ultrasound biophysical profile exam was performed. There is a single viable intrauterine with heart rate 161 BPM. Four-quadrant CORNELIO is 11.5 cm. 2 points given for breathing, movements, tone, and qualitative amniotic fluid volume. Impression: Total biophysical profile score is 8 out of 8.
[2020-02-04 10:34] VITALS: BP 122/74; PULSE 97
== END 2020-02-04 09:30 | disposition home or self-care (01) ==
LOC: OB 15:48
PROVIDERS: ADMIT Family Medicine; ATTEND Family Medicine
DX: O60.03 Preterm labor without delivery, third trimester (principal); Z3A.34 34 weeks gestation of pregnancy; O23.43 Unspecified infection of urinary tract in pregnancy, third trimester
CPT/HCPCS: 59025; 76818; 80307; 81001; 87077; 87081; 87086; 87491; 87591; 96372; G0378; J0290; J0696; J0702; A9270-GY

== ENCOUNTER 2020-02-04 08:43 | Observation (INO) | payer OTHER ==
[2020-02-04] MEDS ORDERED: XYLOCAINE 1% HCL 20 ML MDV IJ PRN (15:41)
[2020-02-04] MEDS ORDERED: Rocephin 1000 MG INJ IM ONE (16:00)
[2020-02-04] MEDS ORDERED: Celestone Soluspan 6MG/ML IM ONE (16:00)
[2020-02-04] MEDS ORDERED: Celestone Soluspan 6MG/ML ONE (18:23)
[2020-02-05 11:33] VITALS: BP 123/79; PULSE 96
== END 2020-02-04 18:55 | disposition home or self-care (01) ==
LOC: EDSTATUS 11:06 → OB 18:11
PROVIDERS: ADMIT Family Medicine; ATTEND Family Medicine
DX: O60.03 Preterm labor without delivery, third trimester (principal); Z3A.34 34 weeks gestation of pregnancy
CPT/HCPCS: 59025; 90384; G0378; J0696; J0702

== ENCOUNTER 2020-02-15 19:13 | Observation (INO) | payer OTHER ==
[2020-02-15 20:12] LABS: Appearance SLIGHTLY CLOUDY (CLEAR); Bilirubin NEGATIVE (NEGATIVE); Blood NEGATIVE Ery/ul (0-5); Epithelial Cells RARE /HPF (FEW); Glucose NEGATIVE (NEGATIVE); Ketones NEGATIVE (NEGATIVE); Leukocyte Esterase LARGE (NEGATIVE); Mucus SLIGHT /HPF (NEGATIVE); Nitrite NEGATIVE (NEGATIVE); Protein,Urine Dip NEGATIVE (Negative); RBC 0-2 /HPF (0-2); Specific Gravity 1.008 (1.005-1.025); Urobilinogen NEGATIVE mg/dL (0-1)
[2020-02-16] MEDS ORDERED: Lactated Ringers 1,000 ML IV ONE (00:01)
[2020-02-16] MEDS ORDERED: Lactated Ringers 1,000 ML IV SCH (02:00)
[2020-02-16 06:31] VITALS: BP 130/80; PULSE 96
== END 2020-02-16 09:45 | disposition home or self-care (01) ==
LOC: OB 19:13
PROVIDERS: ADMIT Obstetrics & Gynecology; ATTEND Obstetrics & Gynecology
DX: O47.1 False labor at or after 37 completed weeks of gestation (principal); Z3A.36 36 weeks gestation of pregnancy
CPT/HCPCS: 81001; G0378; 99219

== ENCOUNTER 2020-02-23 20:16 | Observation (INO) | payer OTHER ==
[2020-02-23 20:45] VITALS: O2SAT 97
[2020-02-23 21:13] LABS: Amourphous Crystal FEW /HPF (NEGATIVE); Appearance CLOUDY (CLEAR); Bacteria FEW /HPF (NEGATIVE); Bilirubin NEGATIVE (NEGATIVE); Blood SMALL Ery/ul (0-5); Epithelial Cells RARE /HPF (FEW); Glucose NEGATIVE (NEGATIVE); Ketones NEGATIVE (NEGATIVE); Leukocyte Esterase LARGE (NEGATIVE); Mucus SLIGHT /HPF (NEGATIVE); Nitrite NEGATIVE (NEGATIVE); Protein,Urine Dip NEGATIVE (Negative); Urobilinogen NEGATIVE mg/dL (0-1); WBC >100 /HPF (0-5)
[2020-02-23 21:19] LABS: Amphetamine,Urine NEGATIVE (NEGATIVE); Barbiturate,Urine NEGATIVE (NEGATIVE); Benzodiazepine,Urine NEGATIVE (NEGATIVE); Cocaine,Urine NEGATIVE (NEGATIVE); Methadone,Urine NEGATIVE (NEGATIVE); Opiate,Urine NEGATIVE (NEGATIVE); PCP,Urine NEGATIVE (NEGATIVE); THC,Urine NEGATIVE (NEGATIVE)
[2020-02-23] MEDS ORDERED: Rocephin 1000 MG INJ IM ONE (22:48)
[2020-02-23] MEDS ORDERED: XYLOCAINE 1% HCL 20 ML MDV IJ ONE (22:48)
[2020-02-23] MEDS ORDERED: Rocephin 1000 MG INJ ONE (23:05)
[2020-02-23 23:55] VITALS: BP 130/75; PULSE 93
== END 2020-02-23 23:40 | disposition home or self-care (01) ==
LOC: OB 20:16
PROVIDERS: ADMIT Family Medicine; ATTEND Family Medicine
DX: Z34.03 Encounter for supervision of normal first pregnancy, third trimester (principal)
CPT/HCPCS: 80307; 81001; 84112; 87086; 96372; G0378; J0696

== ENCOUNTER 2020-02-24 11:49 | Inpatient (IN) | payer OTHER ==
[2020-02-24 12:35] LABS: Absolute Neutrophil Ct (ANC) 6.89 (1.4-6.9); BASOPHIL % 0.2 % (0.0-0.4); Basophil (Absolute #) 0.02 (0-0.4); Eosinophil (Absolute #) 0.09 (0-0.5); Hematocrit 34.7 % (35-47); Hemoglobin 11.3 gm/dl (12.0-16.0); Lymphocyte (Absolute #) 1.96 (1.0-4.6); Lymphocytes % 20.8 % (24.0-44.0); Mean Cell Volume 90.1 fl (78-100); Mean Corpuscular Hemoglobin 29.4 pg (26-32); Mean Corpuscular Hgb Concent. 32.6 g/dl (32-36); Mean Platelet Volume 9.8 fl (7.5-11.0); Monocyte (Absolute #) 0.48 (0.0-1.3); Monocytes % 5.1 % (0.0-12.0); Neutrophil % 72.9 % (36.0-66.0); Platelet Count 176 K/mm3 (150-450); Red Blood Count 3.85 M/mm3 (4.1-5.4); Red Cell Distribution Width 14.7 % (11.5-14.0); White Blood Count 9.4 K/mm3 (4.0-10.5)
[2020-02-24 13:04] LABS: ALBUMIN 3.6 g/dL (3.5-5.0); ALKALINE PHOSPHATASE 148 U/L (38-126); ANION GAP 11.6 MEQ/L (5-15); BLOOD UREA NITROGEN 6 mg/dL (7-17); CHLORIDE 106 mmol/L (98-107); Calcium 9.7 mg/dL (8.4-10.2); Carbon Dioxide 24 mmol/L (22-30); Glucose 109 mg/dL (74-106); Potassium 3.4 mmol/L (3.5-5.1); SGOT/AST 31 U/L (14-36); SGPT/ALT 22 U/L (0-35); SODIUM 138 mmol/L (137-145); Total Protein 6.6 g/dL (6.3-8.2)
[2020-02-24 13:18] LABS: Appearance SLIGHTLY CLOUDY (CLEAR); Bacteria MANY /HPF (NEGATIVE); Bilirubin NEGATIVE (NEGATIVE); Blood NEGATIVE Ery/ul (0-5); Epithelial Cells RARE /HPF (FEW); Glucose NEGATIVE (NEGATIVE); Ketones NEGATIVE (NEGATIVE); Leukocyte Esterase LARGE (NEGATIVE); Mucus SLIGHT /HPF (NEGATIVE); Nitrite NEGATIVE (NEGATIVE); Protein,Urine Dip NEGATIVE (Negative); Specific Gravity 1.008 (1.005-1.025); Urobilinogen NEGATIVE mg/dL (0-1); WBC 26-50 /HPF (0-5)
[2020-02-24] MEDS: TYLENOL 325 MG PO PRN ×2 (16:58→21:54)
[2020-02-24] MEDS: KEFLEX 500 MG PO SCH ×2 (18:16→21:54)
[2020-02-24] MEDS ORDERED: ZOFRAN ODT 4 MG PO PRN (19:06)
[2020-02-25] MEDS: THERAGRAN MULTIVITAMIN PO SCH (10:00)
[2020-02-25] MEDS: KEFLEX 500 MG PO SCH ×2 (10:00→13:10)
[2020-02-25] MEDS ORDERED: NON-FORMULARY ITEM (Prenatal Vits W-Ca,Fe,Fa(<1mg) [Prenatal] 1 EACH) PO SCH (10:00)
[2020-02-25] MEDS: FEOSOL 325 MG PO SCH (10:01)
[2020-02-25] MEDS ORDERED: OB EPIDURAL NAROPIN/SUFENTANIL IN NACL EPIDURAL PRN (15:05)
[2020-02-25] MEDS ORDERED: Phenergan 25 MG INJ IV PRN (15:05)
[2020-02-25] MEDS ORDERED: BRETHINE 1 MG/ML SQ PRN (15:05)
[2020-02-25] MEDS ORDERED: Lactated Ringers 1,000 ML IV ONE (15:05)
[2020-02-25] MEDS ORDERED: STADOL 2 MG IV PRN (15:05)
[2020-02-25] MEDS ORDERED: PITOCIN 30 UNITS/ LR 500 ML 30 UNITS/500 ML IV.SOLN. IV SCH ×3 (15:30→21:00)
[2020-02-25] MEDS ORDERED: ROCEPHIN 1 Gm-D5w 50 ml Bag** 1 G/50 ML IVPB IV SCH (17:00)
[2020-02-25 18:34] LABS: Amphetamine,Urine NEGATIVE (NEGATIVE); Barbiturate,Urine NEGATIVE (NEGATIVE); Benzodiazepine,Urine NEGATIVE (NEGATIVE); Cocaine,Urine NEGATIVE (NEGATIVE); Methadone,Urine NEGATIVE (NEGATIVE); Opiate,Urine NEGATIVE (NEGATIVE); PCP,Urine NEGATIVE (NEGATIVE); THC,Urine NEGATIVE (NEGATIVE)
[2020-02-25 18:47] LABS: 24 HR TOT. PROTEIN CALCULATION 0.6 GM/DAY (0.04-0.15)
[2020-02-25] MEDS: TYLENOL 325 MG PO PRN (19:20)
[2020-02-25] MEDS ORDERED: XYLOCAINE 1% HCL 20 ML MDV IJ PRN (20:35)
[2020-02-25] MEDS: Nubain 10 MG/ML IV PRN (21:46)
[2020-02-25] MEDS ORDERED: Cervidil 10 MG VAG SCH (22:00)
[2020-02-26] MEDS: TYLENOL 325 MG PO PRN ×2 (00:23→06:59)
[2020-02-26] MEDS: Lactated Ringers 1,000 ML IV SCH ×2 (01:27→06:37)
[2020-02-26] MEDS: Zofran 4 MG/2 ML VIAL IV PRN ×2 (01:36→07:23)
[2020-02-26] MEDS: FEOSOL 325 MG PO SCH (11:27)
[2020-02-26] MEDS: THERAGRAN MULTIVITAMIN PO SCH (11:27)
[2020-02-26] MEDS: Nubain 10 MG/ML IV PRN ×2 (11:59→17:50)
[2020-02-26] MEDS: Magnesium Sulfate 40 Gm/1000 Ml H2O Premix*** 1,000 ML IV SCH (15:17)
[2020-02-26] MEDS ORDERED: ROCEPHIN 1 Gm-D5w 50 ml Bag** 1 G/50 ML IVPB IV SCH (17:00)
[2020-02-26] MEDS ORDERED: SOD CITRATE-CITRIC ACID SOLN PO ONE (19:04)
[2020-02-26] MEDS ORDERED: CEFAZOLIN 2 GM-D5W BAG** 2 GM/50 ML ML IV ONE (19:10)
[2020-02-26] MEDS ORDERED: Reglan 10 MG/2 ML IV SCH (19:15)
[2020-02-26] MEDS ORDERED: Pepcid 20 MG VIAL IV SCH (19:15)
[2020-02-26] MEDS ORDERED: Mylicon 80MG PO PRN (19:23)
[2020-02-26] MEDS ORDERED: NORCO 5/325 MG PO PRN (19:23)
[2020-02-26] MEDS ORDERED: MEFOXIN 2 GM PREMIX** 2 GM/50 ML ML IV ONE (19:25)
[2020-02-26] MEDS ORDERED: CEFAZOLIN 2 GM-D5W BAG** 2 GM/50 ML ML IV SCH (19:30)
[2020-02-26] MEDS ORDERED: Astramorph-Pf 5 MG/10 ML ONE (19:41)
[2020-02-26 19:59] LABS: ALBUMIN 3.1 g/dL (3.5-5.0); ALKALINE PHOSPHATASE 185 U/L (38-126); ANION GAP 10.3 MEQ/L (5-15); BLOOD UREA NITROGEN 3 mg/dL (7-17); CHLORIDE 108 mmol/L (98-107); Calcium 8.7 mg/dL (8.4-10.2); Carbon Dioxide 22 mmol/L (22-30); Creatinine 1 0.57 mg/dL (0.52-1.04); Glucose 113 mg/dL (74-106); Potassium 3.2 mmol/L (3.5-5.1); SGOT/AST 46 U/L (14-36); SGPT/ALT 24 U/L (0-35); SODIUM 137 mmol/L (137-145); Total Protein 5.9 g/dL (6.3-8.2)
[2020-02-26] MEDS ORDERED: MEFOXIN 2 GM PREMIX** 2 GM/50 ML ML IV SCH (20:00)
[2020-02-26] MEDS ORDERED: Zofran 4 MG/2 ML VIAL ONE (20:03)
[2020-02-26 20:38] LABS: ABO TYPING O; Antibody Screen NEGATIVE (NEGATIVE); RH TYPING POSITIVE
[2020-02-26] MEDS ORDERED: PHENYLEPHRINE HCL ONE (20:39)
[2020-02-26 20:48] LABS: INR 0.99 (0.8-3.0); PROTIME 11.2 SECONDS (9.95-12.35)
[2020-02-26 20:50] LABS: PTT 24.4 SECONDS (25.3-37.0)
[2020-02-26 21:37] LABS: Absolute Neutrophil Ct (ANC) 17.28 (1.4-6.9); BASOPHIL % 0.1 % (0.0-0.4); Basophil (Absolute #) 0.02 (0-0.4); Eosinophil (Absolute #) 0 (0-0.5); Hematocrit 26.7 % (35-47); Hemoglobin 8.8 gm/dl (12.0-16.0); Lymphocyte (Absolute #) 1.62 (1.0-4.6); Lymphocytes % 8.1 % (24.0-44.0); Mean Cell Volume 90.5 fl (78-100); Mean Corpuscular Hemoglobin 29.8 pg (26-32); Mean Platelet Volume 9.7 fl (7.5-11.0); Neutrophil % 86.8 % (36.0-66.0); Platelet Count 208 K/mm3 (150-450); Red Blood Count 2.95 M/mm3 (4.1-5.4); Red Cell Distribution Width 14.6 % (11.5-14.0); White Blood Count 19.9 K/mm3 (4.0-10.5)
[2020-02-26 22:11] LABS: Appearance CLEAR (CLEAR); Bilirubin NEGATIVE (NEGATIVE); Blood MODERATE Ery/ul (0-5); Glucose NEGATIVE (NEGATIVE); Ketones SMALL (NEGATIVE); Leukocyte Esterase NEGATIVE (NEGATIVE); Mucus SLIGHT /HPF (NEGATIVE); Nitrite NEGATIVE (NEGATIVE); Protein,Urine Dip NEGATIVE (Negative); Specific Gravity 1.006 (1.005-1.025); Urobilinogen NEGATIVE mg/dL (0-1); WBC 0-2 /HPF (0-5)
[2020-02-26 22:52] LABS: Bacteria NONE SEEN /HPF (NEGATIVE)
[2020-02-26] MEDS ORDERED: Ambien 5 MG Tablet PO ONE (23:00)
[2020-02-26] MEDS: MILK OF MAGNESIA 30 ML PO SCH (23:17)
[2020-02-26] MEDS: NORCO 5/325 MG PO PRN (23:18)
[2020-02-27] MEDS ORDERED: MOTRIN 400 MG ONE (01:18)
[2020-02-27] MEDS: MOTRIN 600 MG PO SCH ×3 (01:21→21:21)
[2020-02-27] MEDS: Lactated Ringers 1,000 ML IV SCH (03:47)
[2020-02-27] MEDS ORDERED: MEFOXIN 2 GM PREMIX** 2 GM/50 ML ML IV SCH (04:00)
[2020-02-27] MEDS: BENADRYL 25 MG CAPSULE PO PRN ×2 (04:56→13:13)
[2020-02-27 05:14] LABS: Absolute Neutrophil Ct (ANC) 9.61 (1.4-6.9); BASOPHIL % 0.2 % (0.0-0.4); Basophil (Absolute #) 0.02 (0-0.4); Eosinophil % 0.1 % (0.00-5.0); Eosinophil (Absolute #) 0.01 (0-0.5); Hematocrit 22.4 % (35-47); Hemoglobin 7.1 gm/dl (12.0-16.0); Lymphocyte (Absolute #) 2.42 (1.0-4.6); Lymphocytes % 18.9 % (24.0-44.0); Mean Cell Volume 91.1 fl (78-100); Mean Corpuscular Hemoglobin 28.9 pg (26-32); Mean Corpuscular Hgb Concent. 31.7 g/dl (32-36); Mean Platelet Volume 9.7 fl (7.5-11.0); Monocyte (Absolute #) 0.77 (0.0-1.3); Neutrophil % 74.8 % (36.0-66.0); Platelet Count 172 K/mm3 (150-450); Red Blood Count 2.46 M/mm3 (4.1-5.4); White Blood Count 12.8 K/mm3 (4.0-10.5)
--- NOTE | 2020-02-27 08:28 | OP ---
SURGERY DATE/TIME: 02/26/20202009 PREOPERATIVE DIAGNOSIS: fourth-degree laceration. POSTOPERATIVE DIAGNOSIS: fourth-degree laceration. PROCEDURE: Repair of fourth-degree perineal tear. SURGEON: Jeremy Palmer D.O. ORTHOTIC FINISH GRINDING TECHNICIAN: Juliette Robert, surgical coder. ANESTHESIA: Spinal. ESTIMATED BLOOD LOSS: 150 cc. COMPLICATIONS: None. INDICATIONS: The risks, benefits, indications and alternatives of the procedure were reviewed with the patient prior to procedure. The patient understood the risk of infection, bleeding, bowel injury, bladder injury, fecal incontinence, pelvic infection, abscess that may be associated with this surgery however desires to have this procedure as a possible need to alleviate her current medical condition. DESCRIPTION OF PROCEDURE AND FINDINGS: At this point the patient taken to the operating room, given spinal anesthesia. She was prepped and draped in the usual sterile fashion. At this point the fourth-degree tear was identified and a Gelpi was used to better delineate repair and was used for retraction. At this point the apex of the rectal mucosa was identified approximately 3 to 4 cm proximal to the internal anal sphincter. 4-0 Vicryl suture was used initially where approximately four interrupted sutures were placed on the rectal mucosa where transmucosal sutures were not placed. However, interrupted sutures were placed and were done so without complication. The internal anal sphincter was identified and approximately three sutures were placed in interrupted fashion where it was identified and was closed without complication. From this point the external anal sphincter was identified, where each end was identified and approximately three sutures were placed on each end. From this point the transverse perineal muscle was identified and a figure-of-8 suture of 0 Vicryl suture was used to reapproximate this muscle. An additional figure-of-8 suture was used to approximate the bulbocavernosus muscle and was done so without complication bringing the perineal body together. At this point the apex of the vaginal mucosa was then identified approximately 5 cm proximal to the vaginal opening where 0 Vicryl suture was used at the apex and was taken down to its most distal region where at this point suture was tied and from this point interrupted sutures were used to close the perineal body approximately six sutures were used, three proximally at the perineal body and was done so without complication. There was minimal bleeding that was noted. After completion a finger was placed in the rectal region and there was no suture that was noted along the mucosa. There was good tone that was identified at the completion. From this point the patient was then taken out of dorsal lithotomy position and was then taken to the recovery room in stable condition. All instruments and laps were accounted for x2.
[2020-02-27] MEDS ORDERED: FERREX 150 PO SCH (10:00)
[2020-02-27 10:26] LABS: CROSS MATCH (PRBC) COMPATIBLE (COMPATIBLE)
[2020-02-27] MEDS ORDERED: Sodium Chloride 0.9% 1000 ML 1,000 ML IV SCH (10:45)
[2020-02-27] MEDS: Colace 100 MG PO SCH ×2 (11:27→22:00)
[2020-02-27] MEDS: THERAGRAN MULTIVITAMIN PO SCH (11:27)
[2020-02-27] MEDS: FEOSOL 325 MG PO SCH (11:27)
[2020-02-27] MEDS: MILK OF MAGNESIA 30 ML PO SCH ×2 (11:27→21:17)
[2020-02-27] MEDS: Magnesium Sulfate 40 Gm/1000 Ml H2O Premix*** 1,000 ML IV SCH (11:27)
[2020-02-27] MEDS: TYLENOL 325 MG PO PRN ×2 (15:39→20:16)
[2020-02-27 20:47] LABS: Hematocrit 26.7 % (35-47)
[2020-02-27 20:48] LABS: Hemoglobin 8.9 gm/dl (12.0-16.0)
[2020-02-27] MEDS: Dermoplast Spray TP PRN ×2 (22:00→23:42)
[2020-02-27] MEDS: TUCKS TP PRN ×3 (22:00→23:41)
[2020-02-27] MEDS: NORCO 5/325 MG PO PRN (23:43)
[2020-02-28] MEDS: MOTRIN 600 MG PO SCH ×2 (04:59→05:49)
[2020-02-28 05:31] LABS: Hematocrit 25.3 % (35-47); Hemoglobin 8.3 gm/dl (12.0-16.0); Mean Cell Volume 89.4 fl (78-100); Mean Corpuscular Hemoglobin 29.3 pg (26-32); Mean Corpuscular Hgb Concent. 32.8 g/dl (32-36); Mean Platelet Volume 9.7 fl (7.5-11.0); Platelet Count 170 K/mm3 (150-450); Red Blood Count 2.83 M/mm3 (4.1-5.4); Red Cell Distribution Width 15.7 % (11.5-14.0); White Blood Count 11.8 K/mm3 (4.0-10.5)
[2020-02-28 07:23] LABS: BAND 13 % (0.0-2.0); Lymphocytes 24 % (24-44); Monocyte 2 % (0.0-12.0); Neutrophils 61 % (36.0-66.0); Total Cells Counted 100
[2020-02-28 07:24] LABS: Macrocytosis 1+; Platelet Estimate NORMAL (NORMAL); Polychromasia RARE
[2020-02-28 07:25] LABS: Absolute Neutrophil Ct (ANC) 8.71 (1.4-6.9)
[2020-02-28] MEDS ORDERED: MOTRIN 400 MG PO PRN (09:13)
[2020-02-28] MEDS: FEOSOL 325 MG PO SCH (09:40)
[2020-02-28] MEDS: TYLENOL EXTRA STRENGTH 500 MG PO PRN ×2 (09:40→17:01)
[2020-02-28] MEDS: THERAGRAN MULTIVITAMIN PO SCH (09:40)
[2020-02-28] MEDS: NORCO 5/325 MG PO PRN ×2 (12:23→20:15)
[2020-02-28] MEDS: TUCKS TP PRN (18:10)
[2020-02-28] MEDS: Colace 100 MG PO SCH ×2 (21:24→21:25)
[2020-02-28] MEDS: MILK OF MAGNESIA 30 ML PO SCH (21:26)
[2020-02-28 21:35] VITALS: O2SAT 100
[2020-02-29] MEDS: MILK OF MAGNESIA 30 ML PO SCH (02:44)
[2020-02-29] MEDS: NORCO 5/325 MG PO PRN (05:50)
[2020-02-29 09:12] VITALS: BP 140/82; PULSE 105
[2020-02-29] MEDS: FEOSOL 325 MG PO SCH (12:47)
[2020-02-29] MEDS: THERAGRAN MULTIVITAMIN PO SCH (12:48)
== END 2020-02-29 13:05 | disposition home or self-care (01) | DRG 768 ==
LOC: OB 11:49 → INTOOBSV 02-25 10:24 → OBSVTOIN 02-25 10:24 → INTOOBSV 02-26 10:24
PROVIDERS: ADMIT Family Medicine; ATTEND Family Medicine
PROC: 10E0XZZ Delivery of Products of Conception, External Approach (ICD-10-PCS; principal; 2020-02-26)
PROC: 0DQP0ZZ Repair Rectum, Open Approach (ICD-10-PCS; 2020-02-26)
DX: O14.94 Unspecified pre-eclampsia, complicating childbirth (principal); Z37.0 Single live birth; O66.0 Obstructed labor due to shoulder dystocia; O70.3 Fourth degree perineal laceration during delivery; Z3A.37 37 weeks gestation of pregnancy; O90.81 Anemia of the puerperium; R19.7 Diarrhea, unspecified
CPT/HCPCS: 36415; 36430; 80053; 80307; 81001; 81002; 81050; 82947; 83735; 84112; 84156; 84550; 85014; 85018; 85025; 85610; 85730; 86850; 86900; 86901; 86922; 87086; 88720; 94799; 96372; G0378; J0690; J0694; J0696; J2274; J2300; J2370; J2405; J2590; P9016; Q0162; A9270-GY

== ENCOUNTER 2021-05-06 17:32 | Emergency (ER) | payer OTHER ==
[2021-05-06] MEDS ORDERED: MORPHINE SULFATE 4 MG INJ IV ONE (17:59)
[2021-05-06] MEDS ORDERED: Sodium Chloride 0.9% 1000 ML 1,000 ML IV STA (17:59)
[2021-05-06] MEDS ORDERED: Zofran 4 MG/2 ML VIAL IV ONE (17:59)
[2021-05-06 18:07] LABS: Absolute Neutrophil Ct (ANC) 4.82 (1.4-6.9); BASOPHIL % 0.2 % (0.0-0.4); Basophil (Absolute #) 0.02 (0-0.4); Eosinophil % 2.3 % (0.00-5.0); Eosinophil (Absolute #) 0.21 (0-0.5); Hematocrit 40.5 % (35-47); Hemoglobin 13.7 gm/dl (12.0-16.0); Lymphocyte (Absolute #) 3.56 (1.0-4.6); Lymphocytes % 39.3 % (24.0-44.0); Mean Cell Volume 85.8 fl (78-100); Mean Corpuscular Hgb Concent. 33.8 g/dl (32-36); Mean Platelet Volume 9.7 fl (7.5-11.0); Monocyte (Absolute #) 0.45 (0.0-1.3); Neutrophil % 53.2 % (36.0-66.0); Platelet Count 328 K/mm3 (150-450); Red Blood Count 4.72 M/mm3 (4.1-5.4); Red Cell Distribution Width 13.7 % (11.5-14.0); White Blood Count 9.1 K/mm3 (4.0-10.5)
[2021-05-06] MEDS ORDERED: Sodium Chloride 0.9% 1000 ML 1,000 ML ONE (18:14)
[2021-05-06] MEDS ORDERED: Zofran 4 MG/2 ML VIAL ONE (18:14)
[2021-05-06] MEDS ORDERED: MORPHINE SULFATE 4 MG INJ ONE (18:14)
[2021-05-06 18:21] LABS: Appearance SLIGHTLY CLOUDY (CLEAR); Bacteria RARE /HPF (NEGATIVE); Bilirubin NEGATIVE (NEGATIVE); Blood SMALL Ery/ul (0-5); Epithelial Cells FEW /HPF (FEW); Glucose NEGATIVE (NEGATIVE); Ketones NEGATIVE (NEGATIVE); Leukocyte Esterase LARGE (NEGATIVE); Nitrite NEGATIVE (NEGATIVE); Protein,Urine Dip NEGATIVE (Negative); Specific Gravity 1.013 (1.005-1.025); Urobilinogen NEGATIVE mg/dL (0-1); WBC 26-50 /HPF (0-5)
--- NOTE | 2021-05-06 18:24 | ERPHSYRPT ---
- History of Present Illness Historian: patient Exam Limitations: no limitations Patient Subjective Stated Complaint: RLQ pain and NV x 6 days Triage Nursing Assessment: pt to ED c/o RLQ pain and NV x 6 days. pt states she was in quick care yesterday and blood work taken and stool sample ordered but unable to provide sample. tenderness increases with palpation. "today it shoots in to my back" and denies radiation prior to today. rates 3/10 now, has been up to 10 over last few days. Timing/Duration: week(s) (1), intermittent, gradual onset, worse Activities at Onset: rest Quality: sharpness Abdominal Pain Onset Location: RLQ Pain Radiation: back Severity of Pain-Max: severe Severity of Pain-Current: moderate Modifying Factors: Improves With: nothing Associated Symptoms: back, nausea, vomiting Previous symptoms: no prior history Hx Tetanus, Diphtheria Vaccination/Date Given: Yes Hx Influenza Vaccination/Date Given: Yes (June 2019) Hx Pneumococcal Vaccination/Date Given: No Immunizations Up to Date: Yes <DAT FARLEY - Last Filed: 05/06/21 18:21> <DAVEY SMITH - Last Filed: 05/06/21 20:00> - History of Present Illness Time Seen by Provider: 05/06/21 17:33 Physician History: 20 years old female presented in the ER with chief complaint of right lower quadrant pain off and on for almost 1 week with associated nausea and vomiting, moderate to severe intensity, without any significant aggravating or relieving factors and today she has noticed some radiation to the back. Denies any urinary symptoms without any vaginal bleeding or discharge. Does have history of ovarian cysts. (DAT FARLEY) Allergies/Adverse Reactions: diclofenac Adverse Reaction (Severe, Verified 05/06/21 17:55) Diarrhea Vomitin and diarrhea Home Medications: Escitalopram Oxalate 10 mg [Lexapro 10 MG] 10 mg PO DAILY 05/06/21 [History] Norethindrone-Ethin. Estradiol [Pirmella 1-35 28 Tablet] 1 each PO DAILY 05/06/21 [History] Omeprazole 20 mg PO DAILY 05/06/21 [History] Ondansetron ODT 4 MG [Zofran Odt 4 mg] 4 mg PO DAILY PRN PRN 05/06/21 [History] Topiramate [Topamax] 25 mg PO DAILY 05/06/21 [History] Travel Risk - International Travel Have you traveled outside of the country in past 3 weeks: No - Coronavirus Screening Are you exhibiting any of the following symptoms?: Yes Symptoms: Vomiting/Diarrhea Close contact with a COVID-19 positive Pt in past 14-21 Days: No - Vaccine Status Have you recieved a Covid-19 vaccination: No <DAT FARLEY - Last Filed: 05/06/21 18:21> - Review of Systems Constitutional: Night Sweats Eyes: No Symptoms Ears, Nose, & Throat: No Symptoms Respiratory: No Symptoms Cardiac: No Symptoms Abdominal/Gastrointestinal: Abdominal Pain, Nausea, Vomiting Genitourinary Symptoms: No Symptoms Musculoskeletal: No Symptoms Skin: No Symptoms Neurological: No Symptoms Psychological: No Symptoms Endocrine: No Symptoms Hematologic/Lymphatic: No Symptoms <DAT FARLEY - Last Filed: 05/06/21 18:21> - Past Medical History Pertinent Past Medical History: Yes Neurological History: Migraines ENT History: No Pertinent History Cardiac History: No Pertinent History Respiratory History: Asthma Endocrine Medical History: No Pertinent History Musculoskeletal History: Fractures GI Medical History: Gallbladder Disease History: No Pertinent History Psycho-Social History: Other Female Reproductive Disorders: No Pertinent History Other Medical History: right hip pain chronic. post depression - Past Surgical History Past Surgical History: Yes Neuro Surgical History: No Pertinent History Cardiac: No Pertinent History Respiratory: No Pertinent History Gastrointestinal: Cholecystectomy, Hernia Repair Genitourinary: No Pertinent History Musculoskeletal: Orthopedic Surgery Female Surgical History: No Pertinent History Other Surgical History: right hip - Social History Smoking Status: Never smoker Exposure to second hand smoke: No Drug Use: none Patient Lives Alone: No - Female History Hx Last Menstrual Period: 3 weeks ago Hx Now: (UNKN) <DAT FARLEY - Last Filed: 05/06/21 18:21> - Physical Exam General Appearance: no apparent distress, alert Eye Exam: eyes nml inspection Ears, Nose, Throat Exam: normal ENT inspection, pharynx normal Neck Exam: normal inspection, supple, full range of motion Respiratory Exam: normal breath sounds, lungs clear Cardiovascular Exam: regular rate/rhythm, normal heart sounds Gastrointestinal/Abdomen Exam: soft, normal bowel sounds, tenderness (Right lower quadrant. Minimal guarding without rebound tenderness.) Back Exam: normal inspection, normal range of motion, No CVA tenderness Extremity Exam: normal inspection, normal range of motion, pelvis stable Neurologic Exam: alert, oriented x 3, cooperative Skin Exam: normal color SpO2 Interpretation: normal SpO2: 99 O2 Delivery: Room Air <DAT FARLEY - Last Filed: 05/06/21 18:21> - Nursing Vital Signs Nursing Vital Signs: Initial Vital Signs Pulse Rate 78 05/06/21 18:18 Respiratory Rate 20 05/06/21 18:18 Blood Pressure 115/90 05/06/21 18:18 O2 Sat by Pulse Oximetry 99 05/06/21 18:18 Pain Scale Pain Intensity 6 Ordered Tests: Active Orders 24 hr Category Date Time Status IV Insertion STAT Care 05/06/21 17:59 Active NPO (ED) STAT Care 05/06/21 17:59 Active ABDOMEN AND PELVIS W CONTRAST [CT] Stat Exams 05/06/21 17:59 Taken CBC W DIFF Stat Lab 05/06/21 17:59 Completed CMP Stat Lab 05/06/21 17:59 Completed CULTURE,URINE Stat Lab 05/06/21 18:17 Received HCG,QUALITATIVE URINE Stat Lab 05/06/21 17:59 Completed LIPASE Stat Lab 05/06/21 17:59 Completed UA W/RFX UR CULTURE Stat Lab 05/06/21 18:17 Completed Medication Summary Discontinued Medications Generic Name Dose Route Start Last Admin Trade Name Freq PRN Reason Stop Dose Admin Sodium Chloride 1,000 mls @ 999 mls/hr 05/06/21 17:59 05/06/21 18:20 Sodium Chloride 0.9% 1000 Ml IV 05/06/21 18:59 999 mls/hr .Q1H1M STA Administration Sodium Chloride Confirm 05/06/21 18:14 Sodium Chloride 0.9% 1000 Ml Administered 05/06/21 18:15 Dose 1,000 mls @ ud .ROUTE .STK-MED ONE Morphine Sulfate 4 mg 05/06/21 17:59 05/06/21 18:23 Morphine Sulfate 4 Mg Inj IV 05/06/21 18:00 4 mg STAT ONE Administration Morphine Sulfate Confirm 05/06/21 18:14 Morphine Sulfate 4 Mg Inj Administered 05/06/21 18:15 Dose 4 mg .ROUTE .STK-MED ONE Ondansetron HCl 4 mg 05/06/21 17:59 05/06/21 18:22 Zofran 4 Mg/2 Ml Vial IV 05/06/21 18:00 4 mg STAT ONE Administration Ondansetron HCl Confirm 05/06/21 18:14 Zofran 4 Mg/2 Ml Vial Administered 05/06/21 18:15 Dose 4 mg .ROUTE .STK-MED ONE Lab/Rad Data: Laboratory Result Diagrams 05/06/21 17:59 05/06/21 17:59 Laboratory Results 05/06/21 05/06/21 05/06/21 Range/Units 18:17 17:59 17:59 WBC 9.1 (4.0-10.5) K/mm3 RBC 4.72 (4.1-5.4) M/mm3 Hgb 13.7 (12.0-16.0) gm/dl Hct 40.5 (35-47) % MCV 85.8 (78-100) fl MCH 29.0 (26-32) pg MCHC 33.8 (32-36) g/dl RDW 13.7 (11.5-14.0) % Plt Count 328 (150-450) K/mm3 MPV 9.7 (7.5-11.0) fl Gran % 53.2 (36.0-66.0) % Eos # (Auto) 0.21 (0-0.5) Absolute Lymphs (auto) 3.56 (1.0-4.6) Absolute Monos (auto) 0.45 (0.0-1.3) Lymphocytes % 39.3 (24.0-44.0) % Monocytes % 5.0 (0.0-12.0) % Eosinophils % 2.3 (0.00-5.0) % Basophils % 0.2 (0.0-0.4) % Absolute Granulocytes 4.82 (1.4-6.9) Basophils # 0.02 (0-0.4) Sodium 137 (137-145) mmol/L Potassium 3.8 (3.5-5.1) mmol/L Chloride 104 (98-107) mmol/L Carbon Dioxide 22 (22-30) mmol/L Anion Gap 15.0 (5-15) MEQ/L BUN 11 (7-17) mg/dL Creatinine 0.86 (0.52-1.04) mg/dL Estimated GFR > 60.0 ML/MIN Glucose 84 (74-106) mg/dL Calcium 10.3 H (8.4-10.2) mg/dL Total Bilirubin 0.40 (0.2-1.3) mg/dL AST 69 H (14-36) U/L ALT 56 H (0-35) U/L Alkaline Phosphatase 85 (38-126) U/L Serum Total Protein 7.7 (6.3-8.2) g/dL Albumin 4.6 (3.5-5.0) g/dL Lipase 107 (23-300) U/L Urine Color YELLOW (YELLOW) Urine Appearance SLIGHTLY CLOUDY (CLEAR) Urine pH 5.0 (5-6) Ur Specific [place] 1.013 (1.005-1.025) Urine Protein NEGATIVE (Negative) Urine Ketones NEGATIVE (NEGATIVE) Urine Blood SMALL (0-5) Serg/ul Urine Nitrite NEGATIVE (NEGATIVE) Urine Bilirubin NEGATIVE (NEGATIVE) Urine Urobilinogen NEGATIVE (0-1) mg/dL Ur Leukocyte Esterase LARGE (NEGATIVE) Urine WBC (Auto) 26-50 (0-5) /HPF Urine RBC (Auto) 3-5 (0-2) /HPF U Epithel Cells (Auto) FEW (FEW) /HPF Urine Bacteria (Auto) RARE (NEGATIVE) /HPF Urine Culture Reflexed YES (NO) Urine Glucose NEGATIVE (NEGATIVE) mg/dL Urine HCG, Qual (Negative) 05/06/21 Range/Units 17:59 WBC (4.0-10.5) K/mm3 RBC (4.1-5.4) M/mm3 Hgb (12.0-16.0) gm/dl Hct (35-47) % MCV (78-100) fl MCH (26-32) pg MCHC (32-36) g/dl RDW (11.5-14.0) % Plt Count (150-450) K/mm3 MPV (7.5-11.0) fl Gran % (36.0-66.0) % Eos # (Auto) (0-0.5) Absolute Lymphs (auto) (1.0-4.6) Absolute Monos (auto) (0.0-1.3) Lymphocytes % (24.0-44.0) % Monocytes % (0.0-12.0) % Eosinophils % (0.00-5.0) % Basophils % (0.0-0.4) % Absolute Granulocytes (1.4-6.9) Basophils # (0-0.4) Sodium (137-145) mmol/L Potassium (3.5-5.1) mmol/L Chloride (98-107) mmol/L Carbon Dioxide (22-30) mmol/L Anion Gap (5-15) MEQ/L BUN (7-17) mg/dL Creatinine (0.52-1.04) mg/dL Estimated GFR ML/MIN Glucose (74-106) mg/dL Calcium (8.4-10.2) mg/dL Total Bilirubin (0.2-1.3) mg/dL AST (14-36) U/L ALT (0-35) U/L Alkaline Phosphatase (38-126) U/L Serum Total Protein (6.3-8.2) g/dL Albumin (3.5-5.0) g/dL Lipase (23-300) U/L Urine Color (YELLOW) Urine Appearance (CLEAR) Urine pH (5-6) Ur Specific [place] (1.005-1.025) Urine Protein (Negative) Urine Ketones (NEGATIVE) Urine Blood (0-5) Serg/ul Urine Nitrite (NEGATIVE) Urine Bilirubin (NEGATIVE) Urine Urobilinogen (0-1) mg/dL Ur Leukocyte Esterase (NEGATIVE) Urine WBC (Auto) (0-5) /HPF Urine RBC (Auto) (0-2) /HPF U Epithel Cells (Auto) (FEW) /HPF Urine Bacteria (Auto) (NEGATIVE) /HPF Urine Culture Reflexed (NO) Urine Glucose (NEGATIVE) mg/dL Urine HCG, Qual NEGATIVE (Negative) - Progress Progress: pain not gone completely <DAT FARLEY - Last Filed: 05/06/21 18:21> - Progress Counseled pt/family regarding: lab results, diagnosis, need for follow-up, rad results <DAVEY SMITH - Last Filed: 05/06/21 20:00> - Progress Progress Note: 05/06/21 18:53 40 years old is evaluated for right lower quadrant pain. She is given fluids and morphine, on reevaluation her pain is better. Work-up is pending, care is transferred to Dr. Smith at shift change for reevaluation after work-up and final disposition. (DAT FARLEY) 05/06/21 19:[address] Smith at approximately [address] Smith advised to follow- up on labs on pending CT scan. Laboratory work-up essentially nonremarkable. Urinalysis reveals a urinary tract infection. CT abdomen pelvis was essentially nonremarkable. No appendicitis observed. Patient's pain is likely due to a urinary tract infection. Patient was reassessed. She is comfortable. No active pain. Patient admits to a history of recurrent UTIs. Patient received a dose of Macrobid in our ED. Patient denies the possibility of STI. She has no pelvic pain. No vaginal discharge. Patient agrees to machine pecan picker her prescription from the pharmacy tomorrow morning. She agrees to follow-up with her primary care doctor within 48 hours for reevaluation. Patient voiced no other complaints concerns at this time. Patient states is ready for discharge. Portions of this note were created with voice recognition technology. There may be grammatical, spelling, punctuation or sound alike errors (DAVEY SMITH) <DAT FARLEY - Last Filed: 05/06/21 18:21> - Departure Departure Disposition: Home Critical Care Time: No <DAVEY SMITH - Last Filed: 05/06/21 20:00> - Departure Clinical Impression: UTI (urinary tract infection), Abdominal pain Condition: Stable Referrals: SANDRA PRITCHARD [Primary Care Provider] - Additional Instructions: Discharge/Care Plan MARYCARMEN FERNANDES ERIC was seen on 05/06/21 in the Emergency Room. The patient was counseled regarding Diagnosis,Lab results, Imaging studies, need for follow up and when to return to the Emergency Room. Prescriptions given: Discharge Note I have spoken with the patient and/or caregivers. I have explained the patient's condition, diagnosis and treatment plan based on the information available to me at this time. I have answered the patient's and/or caregiver's questions and addressed any concerns. The patient and/or caregivers have as good understanding of the patient's diagnosis, condition and treatment plan as can be expected at this point. The vital signs have been stable. The patient's condition is stable and appropriate for discharge from the emergency department. The patient will pursue further outpatient evaluation with the primary care physician or other designated or consulting physician as outlined in the discharge instructions. The patient and/or caregivers are agreeable to this plan of care and follow-up instructions have been explained in detail. The patient and/or caregivers have received these instruction. The patient/and or caregivers are aware that any significant change in condition or worsening of symptoms should prompt an immediate return to this or the closest emergency department or call 911. Prescriptions: Nitrofurantoin Macro 100 mg [Macrobid 100MG Capsule] 100 mg PO BID 7 Days #14 cap
[2021-05-06 18:28] LABS: ALBUMIN 4.6 g/dL (3.5-5.0); ALKALINE PHOSPHATASE 85 U/L (38-126); BLOOD UREA NITROGEN 11 mg/dL (7-17); CHLORIDE 104 mmol/L (98-107); Calcium 10.3 mg/dL (8.4-10.2); Carbon Dioxide 22 mmol/L (22-30); Creatinine 1 0.86 mg/dL (0.52-1.04); EST GLOMERULAR FILTRATION RATE > 60.0 ML/MIN; Glucose 84 mg/dL (74-106); LIPASE 107 U/L (23-300); Potassium 3.8 mmol/L (3.5-5.1); SGOT/AST 69 U/L (14-36); SGPT/ALT 56 U/L (0-35); SODIUM 137 mmol/L (137-145); Total Protein 7.7 g/dL (6.3-8.2)
[2021-05-06] MEDS ORDERED: Macrobid 100MG Capsule PO ONE (19:53)
[2021-05-06] MEDS ORDERED: Macrobid 100MG Capsule ONE (19:55)
[2021-05-06 20:24] VITALS: BP 119/86; PULSE 88; O2SAT 99
--- NOTE | 2021-05-07 08:42 | XRAY ---
Exam: CT of the abdomen and pelvis with IV contrast from 05/06/2021. CTDI: 10.81 mGy Comparison: CT of the abdomen and pelvis without IV contrast from 12/07/2018. Indication: 20-year-old female with right lower quadrant abdominal pain off and on for one week; nausea/vomiting; history of ovarian cysts. The patient has a history of prior cholecystectomy and nonspecified "hernia" surgery. Technique: Post-IV contrast axial images were obtained through the abdomen and pelvis during automated injection of 80 cc of Isovue-370 contrast material. Reconstructed coronal and sagittal images were created and reviewed. Delay axial images were obtained as well. No oral contrast was given. Findings: An unremarkable retrocecal appendix is seen within the right lower quadrant. I see no surrounding inflammatory changes to suggest appendicitis. The lung bases reveal minimal bilateral posterior compression atelectatic changes, left greater than right. No posterior pleural fluid is seen. The heart size is normal. The liver is of normal size and reveals diffuse fatty infiltration. No focal hepatic mass or intrahepatic biliary duct distention is seen. Surgical clips consistent with previous cholecystectomy are noted. The spleen is of normal size and reveals no mass. The pancreas and adrenal glands appear normal. The kidneys are normal size and shape. No definite renal calculi or hydronephrosis is seen. Both kidneys function on delay images. There appear to be 2 renal arteries arising from the abdominal aorta on the right. No renal mass is seen. The ureters appear of normal diameter and reveal no ureterolith. No urinary bladder stone is seen. There is no evidence of abdominal aortic aneurysm or abnormal retroperitoneal lymphadenopathy. I do note some small nonspecific mesenteric lymph nodes within the right lower quadrant, the largest measuring about 1.2 cm in diameter. See coronal images #60 through #69 within the right lower quadrant. Consider the possibility of mesenteric adenitis. I see no free intraperitoneal air. There is some weakness of the anterior abdominal wall in the periumbilical region, although I only detect minimal protrusion of intraperitoneal fat into the subcutaneous fat at the superior margin of the umbilicus on midline sagittal image #119. I see no evidence of abnormal bowel distention or bowel obstruction. Some scattered stool is seen throughout the colon. No significant colonic diverticula are seen. The uterus is anteflexed and appears unremarkable. The ovaries appear grossly unremarkable without evidence of significant cysts. No other pelvic mass, abnormal pelvic lymphadenopathy, or free intraperitoneal fluid is seen. Delay images through the urinary bladder appear unremarkable. The pelvic sidewalls appear unremarkable. Only small postinflammatory lymph nodes are seen within each groin. The skeleton reveals no acute fracture or aggressive bone lesion. Impression: 1. The appendix appears unremarkable. I see no evidence of appendicitis. 2. There are some scattered small mesenteric lymph nodes within the right lower quadrant. I believe these are nonspecific. Consider the possibility of mesenteric adenitis. 3. Hepatic steatosis, evidence of prior cholecystectomy, and mild weakness of the anterior abdominal wall near the region of the umbilicus is seen. 4. I see no evidence of ovarian cyst. No intraperitoneal air or intraperitoneal fluid is seen. No other acute process is seen within the abdomen or pelvis.
== END 2021-05-06 20:25 | disposition home or self-care (01) ==
LOC: ED 17:32
DX: N39.0 Urinary tract infection, site not specified (principal); R10.31 Right lower quadrant pain; R11.2 Nausea with vomiting, unspecified; Z79.899 Other long term (current) drug therapy
CPT/HCPCS: 36000; 36415; 74177; 80053; 81001; 83690; 84703; 85025; 87086; 96374; 96375; 99284; J2270; J2405; A9270-GY

== ENCOUNTER 2022-01-25 06:46 | Day surgery (SDC) | payer OTHER ==
[2022-01-25] MEDS ORDERED: Lactated Ringers 1,000 ML IV SCH (07:00)
[2022-01-25] MEDS ORDERED: CEFAZOLIN 2 GM-D5W BAG** 2 GM/50 ML ML IV ONE (07:27)
[2022-01-25] MEDS ORDERED: Lactated Ringers 1,000 ML IV ONE (07:27)
[2022-01-25] MEDS ORDERED: SUBLIMAZE 100 MCG/2 ML ONE (09:24)
[2022-01-25] MEDS ORDERED: Decadron 4 MG INJ ONE (09:24)
[2022-01-25] MEDS ORDERED: DIPRIVAN 200 MG/20 ML IV ONE (09:24)
[2022-01-25] MEDS ORDERED: Xylocaine-Mpf 2% 5 Ml Vial ONE (09:24)
[2022-01-25] MEDS ORDERED: Zofran 4 MG/2 ML VIAL ONE (09:24)
[2022-01-25 10:38] VITALS: O2SAT 97
[2022-01-25 11:01] VITALS: BP 137/86; PULSE 84
[2022-01-25] MEDS ORDERED: CEFAZOLIN 2 GM-D5W BAG** 2 GM/50 ML ML IV SCH (14:00)
--- NOTE | 2022-01-26 13:57 | OP ---
SURGERY DATE/TIME: 01/25/2022 0926 PREOPERATIVE DIAGNOSIS: Abnormal uterine bleeding. POSTOPERATIVE DIAGNOSIS: Abnormal uterine bleeding. PROCEDURE: Hysteroscopy D&C. SURGEON: Jeremy Palmer D.O. [employer]: Juliette Robert rn surgical pcu. ANESTHESIA: General. ESTIMATED BLOOD LOSS: Minimal. COMPLICATIONS: None. INDICATIONS: The risks, benefits, indications and alternatives of the procedure were reviewed with the patient prior to the procedure. The patient understood the risk of infection, bleeding, bowel injury, bladder injury, ureteral injury, uterine perforation, pelvic infection, thromboembolic disorder associated with the surgery and desires to have this surgery as a possible means to alleviate her current medical condition. DESCRIPTION OF PROCEDURE AND FINDINGS: At this point the patient is taken to the operating room, given general sedation, placed in dorsal lithotomy position, prepped and draped in the usual sterile fashion. A weighted speculum is then placed in the patient's vagina and the anterior lip of the cervix is grasped with a single tooth tenaculum. Endocervical dilators were advanced through the endocervical canal as a means to dilate the cervix and the uterus was sounded to approximately 8 cm. From this point, a 5 mm hysteroscope was then placed in through the endocervical region where visualization revealed no gross abnormalities of the endometrial lining. The hysteroscope was subsequently removed and a curette was then placed into the fundus of the uterus and curettage performed in all quadrants of the uterus retrieving a mild amount of tissue. From this point, hemostasis was obtained. From this point, all instruments were removed from the patient's vaginal region. The patient was then taken out of dorsal lithotomy position and was then taken to the recovery room in stable condition. All instruments and laps were accounted for x2.
== END 2022-01-25 10:57 | disposition home or self-care (01) ==
LOC: SDC 06:46
PROVIDERS: ATTEND Obstetrics & Gynecology
DX: N93.9 Abnormal uterine and vaginal bleeding, unspecified (principal)
CPT/HCPCS: 81025; J0690; J1100; J2405; J2704; J3010

== ENCOUNTER 2022-04-27 18:57 | Emergency (ER) | payer OTHER ==
[2022-04-27] MEDS ORDERED: TORAdol 30 mg Injection IV ONE (19:20)
[2022-04-27] MEDS ORDERED: TORAdol 30 mg Injection ONE (19:22)
--- NOTE | 2022-04-27 19:26 | ERPHSYRPT ---
- History of Present Illness Historian: patient Exam Limitations: no limitations Patient Subjective Stated Complaint: pt states "I have stomach pain that goes to my back. I thought it was a UTI but I don't have the same symptoms." Triage Nursing Assessment: pt ambulated into the er; pt is axo x4; c/o abd pain; pt states that pain radiates to rt flank; pt states 6/10 pain; tenderness present to RLQ; hyperactive bowel sounds in all quads; c/o N/V; pt denies urinary burning and frequency; vitals wnl Physician History: 21 yo wf w RLQ pain which is sharp and radiates to her R CVA. Pain is 6/10, and nothing makes better or worse. She has had N/V/D but denies fever/dysuria/hematuria/hematemesis/hematochezia/melena/cough/coryza. is denied. Timing/Duration: other (This morning) Activities at Onset: rest Quality: sharpness, stabbing Abdominal Pain Onset Location: RLQ Pain Radiation: back Severity of Pain-Max: severe Severity of Pain-Current: moderate Modifying Factors: Improves With: nothing Associated Symptoms: back, diarrhea, loss of appetite, nausea, vomiting, No chest pain, No diaphoresis, No fever/chills, No fatigue, No headache, No heartburn, No neck pain, No rash, No shortness of breath, No syncope, No weakness Previous symptoms: no prior history Allergies/Adverse Reactions: diclofenac Adverse Reaction (Severe, Verified 04/27/22 19:08) Diarrhea Vomitin and diarrhea tape Allergy (Uncoded 04/27/22 19:08) Home Medications: Escitalopram Oxalate [Lexapro] 10 mg PO DAILY 05/06/21 [History] Omeprazole 20 mg PO DAILY PRN PRN 05/06/21 [History] Topiramate [Topamax] 25 mg PO DAILY 05/06/21 [History] Hx Tetanus, Diphtheria Vaccination/Date Given: Yes Hx Influenza Vaccination/Date Given: Yes (04/26/22) Hx Pneumococcal Vaccination/Date Given: No Immunizations Up to Date: Yes Travel Risk - International Travel Have you traveled outside of the country in past 3 weeks: No - Coronavirus Screening Are you exhibiting any of the following symptoms?: Yes Symptoms: Vomiting/Diarrhea Close contact with a COVID-19 positive Pt in past 14-21 Days: No - Vaccine Status Have you recieved a Covid-19 vaccination: Yes 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 - Vaccination Dates Date of 2cond Vaccination (if applicable): 09/10/21 - Review of Systems Constitutional: No Symptoms Eyes: No Symptoms Ears, Nose, & Throat: No Symptoms Respiratory: No Symptoms Cardiac: No Symptoms Abdominal/Gastrointestinal: No Symptoms, Abdominal Pain, Nausea, Vomiting, Diarrhea Genitourinary Symptoms: No Symptoms Musculoskeletal: No Symptoms Skin: No Symptoms Neurological: No Symptoms Psychological: No Symptoms Endocrine: No Symptoms Hematologic/Lymphatic: No Symptoms Immunological/Allergic: Pollen Allergy - Past Medical History Pertinent Past Medical History: Yes Neurological History: Migraines ENT History: No Pertinent History Cardiac History: No Pertinent History Respiratory History: Asthma Endocrine Medical History: No Pertinent History Musculoskeletal History: Fractures GI Medical History: Gallbladder Disease History: No Pertinent History Psycho-Social History: Depression, Other Female Reproductive Disorders: Abnormal Uterine Bleeding Other Medical History: right hip pain chronic. post depression - Past Surgical History Past Surgical History: Yes Neuro Surgical History: No Pertinent History Cardiac: No Pertinent History Respiratory: No Pertinent History Gastrointestinal: Cholecystectomy, Hernia Repair Genitourinary: No Pertinent History Musculoskeletal: Orthopedic Surgery Female Surgical History: Dilation & Curettage Other Surgical History: right hip, D & C 02/02 - Social History Smoking Status: Never smoker Exposure to second hand smoke: No Drug Use: none Patient Lives Alone: No Significant Family History: no pertinent family hx - Female History Hx Now: No - Nursing Vital Signs Nursing Vital Signs: Initial Vital Signs Temperature 97.3 F 04/27/22 19:08 Pulse Rate 64 04/27/22 19:08 Respiratory Rate 16 04/27/22 19:08 Blood Pressure 120/87 04/27/22 19:08 O2 Sat by Pulse Oximetry 97 04/27/22 19:08 Pain Scale Pain Intensity 2 WNL - Physical Exam General Appearance: no apparent distress Eye Exam: PERRL/EOMI, eyes nml inspection Ears, Nose, Throat Exam: normal ENT inspection, TMs normal, pharynx normal, moist mucous membranes Neck Exam: normal inspection, non-tender, supple, full range of motion, No meningismus, No mass, No Brudzinski, No Kernig's, No carotid bruit Respiratory Exam: normal breath sounds, lungs clear, airway intact Cardiovascular Exam: regular rate/rhythm, normal heart sounds, normal peripheral pulses, capillary refill <2 sec, No murmur Gastrointestinal/Abdomen Exam: soft, normal bowel sounds, tenderness (Mod RLQ ttp wo guarding or rebound) Back Exam: normal inspection, normal range of motion, CVA tenderness, No vertebral tenderness Extremity Exam: normal inspection, normal range of motion Neurologic Exam: alert, oriented x 3, cooperative, 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-XII nml as tested, normal mood/affect, nml station & gait, sensation nml, No motor deficits, No sensory deficit Skin Exam: normal color, warm, dry Lymphatic Exam: No adenopathy SpO2 Interpretation: normal SpO2: 97 O2 Delivery: Room Air - Course Nursing assessment & vital signs reviewed: Yes - CT Exams Abdomen/Pelvis CT Interpretation: Discussed w/radiologist (NAD/Normal appy) Ordered Tests: Active Orders 24 hr Category Date Time Status IV Insertion STAT Care 04/27/22 19:18 Completed ABDOMEN AND PELVIS W/0 CONTRAS [CT] Stat Exams 04/27/22 20:04 Taken AMYLASE Stat Lab 04/27/22 19:30 Completed CBC W DIFF Stat Lab 04/27/22 19:30 Completed CMP Stat Lab 04/27/22 19:30 Completed CULTURE,URINE Stat Lab 04/27/22 19:17 Received HCG QUALITATIVE,SERUM Stat Lab 04/27/22 19:30 Completed LIPASE Stat Lab 04/27/22 19:30 Completed UA W/RFX CULTURE Stat Lab 04/27/22 19:17 Completed Medication Summary Discontinued Medications Generic Name Dose Route Start Last Admin Trade Name Kush PRN Reason Stop Dose Admin Fentanyl Citrate 50 mcg 04/27/22 20:39 04/27/22 20:43 Fentanyl Citrate 100 Mcg/2 Ml* Vial IV 04/27/22 20:40 50 mcg STAT ONE Administration Fentanyl Citrate Confirm 04/27/22 20:42 Fentanyl Citrate 100 Mcg/2 Ml* Vial Administered 04/27/22 20:43 Dose 100 mcg .ROUTE .STK-MED ONE Ceftriaxone Sodium/Dextrose 1 g in 50 mls @ 100 mls/hr 04/27/22 20:48 04/27/22 21:21 Rocephin 1 Gm-D5w 50 Ml Bag IV 04/27/22 21:17 Infused STAT STA Infusion Sodium Chloride 1,000 mls @ 999 mls/hr 04/27/22 20:48 04/27/22 20:51 Sodium Chloride 0.9% 1000 Ml IV 04/27/22 21:48 999 mls/hr .Q1H1M STA Administration Sodium Chloride Confirm 04/27/22 20:48 Sodium Chloride 0.9% 1000 Ml Administered 04/27/22 20:49 Dose 1,000 mls @ ud .ROUTE .STK-MED ONE Ceftriaxone Sodium/Dextrose Confirm 04/27/22 20:48 Rocephin 1 Gm-D5w 50 Ml Bag Administered 04/27/22 20:49 Dose 1 g in 50 mls @ ud IV .STK-MED ONE Ketorolac Tromethamine 15 mg 04/27/22 19:20 04/27/22 19:23 Ketorolac Tromethamine 30 Mg/Ml Inj IV 04/27/22 19:21 15 mg STAT ONE Administration Ketorolac Tromethamine Confirm 04/27/22 19:22 Ketorolac Tromethamine 30 Mg/Ml Inj Administered 04/27/22 19:23 Dose 30 mg .ROUTE .STK-MED ONE Ondansetron HCl 4 mg 04/27/22 20:39 04/27/22 20:43 Ondansetron Hcl 4 Mg/2 Ml Vial IV 04/27/22 20:40 4 mg STAT ONE Administration Ondansetron HCl Confirm 04/27/22 20:41 Ondansetron Hcl 4 Mg/2 Ml Vial Administered 04/27/22 20:42 Dose 4 mg .ROUTE .STK-MED ONE Lab/Rad Data: Laboratory Result Diagrams 04/27/22 19:30 04/27/22 19:30 Laboratory Results 04/27/22 04/27/22 04/27/22 Range/Units 20:00 19:30 19:30 WBC (4.0-10.5) x10^3/uL RBC (4.1-5.4) x10^6/uL Hgb (12.0-16.0) g/dL Hct (35-47) % MCV (78-100) fL MCH (26-32) pg MCHC (32-36) g/dL RDW (11.5-14.0) % Plt Count (150-450) x10^3/uL MPV (7.5-11.0) fL Gran % (36.0-66.0) % Immature Gran % (Auto) (0.00-0.4) % Nucleat RBC Rel Count (0.00-0.1) % Eos # (Auto) (0-0.5) x10^3/uL Immature Gran # (Auto) (0.00-0.03) x10^3u/L Absolute Lymphs (auto) (1.0-4.6) x10^3/uL Absolute Monos (auto) (0.0-1.3) x10^3/uL Absolute Nucleated RBC (0.00-0.01) x10^3u/L Lymphocytes % (24.0-44.0) % Monocytes % (0.0-12.0) % Eosinophils % (0.00-5.0) % Basophils % (0.0-0.4) % Absolute Granulocytes (1.4-6.9) x10^3/uL Basophils # (0-0.4) x10^3/uL Sodium 138 (137-145) mmol/L Potassium 3.8 (3.5-5.1) mmol/L Chloride 107 (98-107) mmol/L Carbon Dioxide 23 (22-30) mmol/L Anion Gap 12.4 (5-15) MEQ/L BUN 14 (7-17) mg/dL Creatinine 0.85 (0.52-1.04) mg/dL Estimated GFR > 60.0 ML/MIN Glucose 94 (74-106) mg/dL Calcium 8.7 (8.4-10.2) mg/dL Total Bilirubin 0.40 (0.2-1.3) mg/dL AST 20 (14-36) U/L ALT 19 (0-35) U/L Alkaline Phosphatase 75 (38-126) U/L Serum Total Protein 7.3 (6.3-8.2) g/dL Albumin 4.5 (3.5-5.0) g/dL Amylase 81 (30-110) U/L Lipase 117 (23-300) U/L Serum , Qual NEGATIVE (Negative) Urinalys Dipstick Clnc Urine Color (YELLOW) Urine Appearance (CLEAR) Urine pH (5-6) Ur Specific [place] (1.005-1.025) POC Urine Protein Conf (Negative) Urine Ketones (NEGATIVE) Urine Nitrite (NEGATIVE) Urine Bilirubin (NEGATIVE) Urine Urobilinogen (0-1) mg/dL Urine Leukocytes (NEGATIVE) Urine WBC (Auto) (0-5) /HPF Urine RBC (Auto) (0-2) /HPF U Epithel Cells (Auto) (FEW) /HPF Urine Bacteria (Auto) (NEGATIVE) /HPF Urine RBC (0-5) Serg/ul Urine Mucus (Auto) (NEGATIVE) /HPF Ur Culture Indicated? Urine Glucose (NEGATIVE) mg/dL Influenza Type A Ag NEGATIVE (NEGATIVE) Influenza Type B Ag NEGATIVE (NEGATIVE) RSV (PCR) NEGATIVE (Negative) SARS-CoV-2 (PCR) NEGATIVE (NEGATIVE) 04/27/22 04/27/22 Range/Units 19:30 19:17 WBC 8.1 (4.0-10.5) x10^3/uL RBC 4.31 (4.1-5.4) x10^6/uL Hgb 12.3 (12.0-16.0) g/dL Hct 37.8 (35-47) % MCV 87.7 (78-100) fL MCH 28.5 (26-32) pg MCHC 32.5 (32-36) g/dL RDW 13.9 (11.5-14.0) % Plt Count 298 (150-450) x10^3/uL MPV 9.6 (7.5-11.0) fL Gran % 49.5 (36.0-66.0) % Immature Gran % (Auto) 0.2 (0.00-0.4) % Nucleat RBC Rel Count 0.0 (0.00-0.1) % Eos # (Auto) 0.14 (0-0.5) x10^3/uL Immature Gran # (Auto) 0.02 (0.00-0.03) x10^3u/L Absolute Lymphs (auto) 3.41 (1.0-4.6) x10^3/uL Absolute Monos (auto) 0.48 (0.0-1.3) x10^3/uL Absolute Nucleated RBC 0.00 (0.00-0.01) x10^3u/L Lymphocytes % 42.2 (24.0-44.0) % Monocytes % 5.9 (0.0-12.0) % Eosinophils % 1.7 (0.00-5.0) % Basophils % 0.5 (0.0-0.4) % Absolute Granulocytes 3.99 (1.4-6.9) x10^3/uL Basophils # 0.04 (0-0.4) x10^3/uL Sodium (137-145) mmol/L Potassium (3.5-5.1) mmol/L Chloride (98-107) mmol/L Carbon Dioxide (22-30) mmol/L Anion Gap (5-15) MEQ/L BUN (7-17) mg/dL Creatinine (0.52-1.04) mg/dL Estimated GFR ML/MIN Glucose (74-106) mg/dL Calcium (8.4-10.2) mg/dL Total Bilirubin (0.2-1.3) mg/dL AST (14-36) U/L ALT (0-35) U/L Alkaline Phosphatase (38-126) U/L Serum Total Protein (6.3-8.2) g/dL Albumin (3.5-5.0) g/dL Amylase (30-110) U/L Lipase (23-300) U/L Serum , Qual (Negative) Urinalys Dipstick Clnc MAIN LAB Urine Color ORANGE (YELLOW) Urine Appearance SLIGHTLY CLOUDY (CLEAR) Urine pH 5.0 (5-6) Ur Specific [place] 1.020 (1.005-1.025) POC Urine Protein Conf 30 (Negative) Urine Ketones NEGATIVE (NEGATIVE) Urine Nitrite POSITIVE (NEGATIVE) Urine Bilirubin NEGATIVE (NEGATIVE) Urine Urobilinogen 1 (0-1) mg/dL Urine Leukocytes LARGE (NEGATIVE) Urine WBC (Auto) 51-100 (0-5) /HPF Urine RBC (Auto) 16-25 (0-2) /HPF U Epithel Cells (Auto) MODERATE (FEW) /HPF Urine Bacteria (Auto) FEW (NEGATIVE) /HPF Urine RBC SMALL (0-5) Serg/ul Urine Mucus (Auto) SLIGHT (NEGATIVE) /HPF Ur Culture Indicated? YES Urine Glucose 100 (NEGATIVE) mg/dL Influenza Type A Ag (NEGATIVE) Influenza Type B Ag (NEGATIVE) RSV (PCR) (Negative) SARS-CoV-2 (PCR) (NEGATIVE) - Progress Progress: improved Progress Note: 04/27/22 21:13 15mg IV Toradol w mild improvement Pain returned, so 50mcg IV Fentanyl/4mg IV Zofran given 1L NS bolus 1gm IV Rocephin 04/27/22 21:13 Counseled pt/family regarding: lab results, diagnosis, need for follow-up, rad results - Departure Departure Disposition: Home Clinical Impression: UTI (urinary tract infection) Condition: Stable Critical Care Time: No Referrals: SANDRA PRITCHARD [Primary Care Provider] - Follow up/PCP as directed Instructions: Urinary Tract Infection, Adult (DC), Severe Abdominal Pain, Adult (DC) Additional Instructions: Bactrim twice a day for 5 days Fluids Follow up with your family MD Return to ER for increasing pain or temperature greater than 100.5 Prescriptions: Smz/Tmp Ds Tablet [Bactrim Ds Tablet] 1 tab PO Q12H 5 Days #10 tablet
[2022-04-27 19:36] LABS: Absolute Neutrophil Ct (ANC) 3.99 x10^3/uL (1.4-6.9); Basophil (Absolute #) 0.04 x10^3/uL (0-0.4); Eosinophil % 1.7 % (0.00-5.0); Eosinophil (Absolute #) 0.14 x10^3/uL (0-0.5); Hematocrit 37.8 % (35-47); Hemoglobin 12.3 g/dL (12.0-16.0); Lymphocyte (Absolute #) 3.41 x10^3/uL (1.0-4.6); Lymphocytes % 42.2 % (24.0-44.0); Mean Cell Volume 87.7 fL (78-100); Mean Corpuscular Hemoglobin 28.5 pg (26-32); Mean Corpuscular Hgb Concent. 32.5 g/dL (32-36); Mean Platelet Volume 9.6 fL (7.5-11.0); Monocyte (Absolute #) 0.48 x10^3/uL (0.0-1.3); Monocytes % 5.9 % (0.0-12.0); Neutrophil % 49.5 % (36.0-66.0); Platelet Count 298 x10^3/uL (150-450); Red Blood Count 4.31 x10^6/uL (4.1-5.4); Red Cell Distribution Width 13.9 % (11.5-14.0); White Blood Count 8.1 x10^3/uL (4.0-10.5)
[2022-04-27 19:50] LABS: ALBUMIN 4.5 g/dL (3.5-5.0); ALKALINE PHOSPHATASE 75 U/L (38-126); AMYLASE 81 U/L (30-110); ANION GAP 12.4 MEQ/L (5-15); BLOOD UREA NITROGEN 14 mg/dL (7-17); CHLORIDE 107 mmol/L (98-107); Calcium 8.7 mg/dL (8.4-10.2); Carbon Dioxide 23 mmol/L (22-30); Creatinine 1 0.85 mg/dL (0.52-1.04); EST GLOMERULAR FILTRATION RATE > 60.0 ML/MIN; Glucose 94 mg/dL (74-106); LIPASE 117 U/L (23-300); Potassium 3.8 mmol/L (3.5-5.1); SGOT/AST 20 U/L (14-36); SGPT/ALT 19 U/L (0-35); SODIUM 138 mmol/L (137-145); Total Protein 7.3 g/dL (6.3-8.2)
[2022-04-27 20:09] LABS: Bacteria FEW /HPF (NEGATIVE); Epithelial Cells MODERATE /HPF (FEW); Mucus SLIGHT /HPF (NEGATIVE); WBC 51-100 /HPF (0-5)
[2022-04-27 20:10] LABS: Appearance SLIGHTLY CLOUDY (CLEAR); Bilirubin NEGATIVE (NEGATIVE); Glucose 100 mg/dL (NEGATIVE); Ketones NEGATIVE (NEGATIVE); Nitrite POSITIVE (NEGATIVE); Protein,Urine Dip 30 (Negative); RBC SMALL Ery/ul (0-5); Urine Cultured Indicated? YES; Urobilinogen 1 mg/dL (0-1)
[2022-04-27 20:11] LABS: Dipstick done @ ? MAIN LAB
[2022-04-27 20:35] LABS: INFLUENZA A NEGATIVE (NEGATIVE); INFLUENZA B NEGATIVE (NEGATIVE); RESPIRATORY SYNCTIAL VIRUS NEGATIVE (Negative); SARS-CoV-2 Xpert Express NEGATIVE (NEGATIVE)
[2022-04-27] MEDS ORDERED: SUBLIMAZE 100 MCG/2 ML IV ONE (20:39)
[2022-04-27] MEDS ORDERED: Zofran 4 MG/2 ML VIAL IV ONE (20:39)
[2022-04-27] MEDS ORDERED: Zofran 4 MG/2 ML VIAL ONE (20:41)
[2022-04-27] MEDS ORDERED: SUBLIMAZE 100 MCG/2 ML ONE (20:42)
[2022-04-27] MEDS ORDERED: ROCEPHIN 1 Gm-D5w 50 ml Bag** 1 G/50 ML IVPB IV ONE (20:48)
[2022-04-27] MEDS ORDERED: ROCEPHIN 1 Gm-D5w 50 ml Bag** 1 G/50 ML IVPB IV STA (20:48)
[2022-04-27] MEDS ORDERED: Sodium Chloride 0.9% 1000 ML 1,000 ML ONE (20:48)
[2022-04-27] MEDS ORDERED: Sodium Chloride 0.9% 1000 ML 1,000 ML IV STA (20:48)
[2022-04-27 21:50] VITALS: BP 109/81; PULSE 80
[2022-04-27 21:55] VITALS: O2SAT 97
--- NOTE | 2022-04-28 08:54 | XRAY ---
Indication: Right lower quadrant pain. Multiple contiguous axial images obtained through the abdomen and pelvis without contrast. Comparison: May 06, 2021 Lung bases clear. Heart not enlarged. Noncontrasted stomach and bowel loops appear nonobstructed again with normal appendix. Again previous cholecystectomy. No free fluid/air. Remaining liver, pancreas, spleen, adrenal glands, kidneys, ureters, bladder, uterus, and aorta are again unremarkable for noncontrast exam. Osseous structures intact. Impression: Continued negative CT abdomen/pelvis without contrast exam.
== END 2022-04-27 21:52 | disposition home or self-care (01) ==
LOC: ED 18:57
DX: N39.0 Urinary tract infection, site not specified (principal); R10.31 Right lower quadrant pain; R11.2 Nausea with vomiting, unspecified; R19.7 Diarrhea, unspecified; Z79.899 Other long term (current) drug therapy
CPT/HCPCS: 0241U; 36000; 36415; 74176; 80053; 81015; 82150; 83690; 84703; 85025; 87086; 96365; 96374; 96375; 99284; J0696; J1885; J2405; J3010

== ENCOUNTER 2023-10-26 15:41 | Emergency (ER) | payer OTHER ==
[2023-10-26 17:16] VITALS: RESP 18; TEMP 98; O2SAT 98
[2023-10-26] MEDS ORDERED: XYLOCAINE 1% HCL 20 ML MDV ONE (18:01)
--- NOTE | 2023-10-26 18:49 | ERPHSYRPT ---
- History of Present Illness Time Seen by Provider: 10/26/23 16:39 Source: patient Exam Limitations: no limitations Patient Subjective Stated Complaint: C/O laceration. Patient states she cut her hand while trying to open a wine bottle. Triage Nursing Assessment: Patient ambulated back to ER with gauze covering her right hand thumb area. A laceration noted once the gauze was removed. It measures 1.2cm X 0.1cm. No active bleeding at this time but some blood noted to gauze. Physician History: 23 years old female right-handed dominant presented in the ER with complaint of right thumb base laceration while opening a wine bottle prior to arrival. There was bleeding initially but started applying pressure. Complaining of mild to moderate dull aching pain with movements. No distal numbness or tingling. Up-to-date with tetanus. Allergies/Adverse Reactions: cinnamon Allergy (Verified 10/26/23 17:06) diclofenac Adverse Reaction (Severe, Verified 10/26/23 17:06) Diarrhea Vomitin and diarrhea tape Allergy (Uncoded 10/26/23 17:06) Home Medications: Escitalopram Oxalate [Lexapro] 10 mg PO DAILY 05/06/21 [History] Topiramate [Topamax] 50 mg PO DAILY 05/06/21 [History] Atorvastatin Calcium [Lipitor 20MG Tablet] 1 tab PO DAILY 10/26/23 [History] Norgestrel-Ethinyl Estradiol [[id number] Tablet] 1 tab PO DAILY 10/26/23 [History] Hx Tetanus, Diphtheria Vaccination/Date Given: Yes Hx Influenza Vaccination/Date Given: Yes Hx Pneumococcal Vaccination/Date Given: No Immunizations Up to Date: Yes Travel Risk - International Travel Have you traveled outside of the country in past 3 weeks: No - Coronavirus Screening Are you exhibiting any of the following symptoms?: No Close contact with a COVID-19 positive Pt in past 14-21 Days: No - Vaccine Status Have you recieved a Covid-19 vaccination: Yes 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: [employer] - Vaccination Dates Date of 2cond Vaccination (if applicable): 09/10/21 - Review of Systems Constitutional: No Symptoms Ears, Nose, & Throat: No Symptoms Respiratory: No Symptoms Cardiac: No Symptoms Musculoskeletal: Injury Skin: Skin Lesions Neurological: No Symptoms Endocrine: No Symptoms Hematologic/Lymphatic: No Symptoms - Past Medical History Pertinent Past Medical History: Yes Neurological History: Migraines ENT History: No Pertinent History Cardiac History: No Pertinent History Respiratory History: Asthma Endocrine Medical History: No Pertinent History Musculoskeletal History: Fractures GI Medical History: Gallbladder Disease History: No Pertinent History Psycho-Social History: Depression, Other Female Reproductive Disorders: Abnormal Uterine Bleeding Other Medical History: right hip pain chronic. post depression - Past Surgical History Past Surgical History: Yes Neuro Surgical History: No Pertinent History Cardiac: No Pertinent History Respiratory: No Pertinent History Gastrointestinal: Cholecystectomy, Hernia Repair Genitourinary: No Pertinent History Musculoskeletal: Orthopedic Surgery Female Surgical History: Dilation & Curettage Other Surgical History: right hip, D & C 02/02 - Social History Smoking Status: Never smoker Exposure to second hand smoke: No Drug Use: none Patient Lives Alone: No Significant Family History: no pertinent family hx - Female History Hx Now: No ( control) - Nursing Vital Signs Nursing Vital Signs: Initial Vital Signs Temperature 98 F 10/26/23 17:08 Pulse Rate 95 H 10/26/23 17:08 Respiratory Rate 18 10/26/23 17:08 Blood Pressure 123/91 10/26/23 17:08 O2 Sat by Pulse Oximetry 98 10/26/23 17:08 Pain Scale Pain Intensity 2 - Physical Exam General Appearance: no apparent distress Eye Exam: PERRL/EOMI Ears, Nose, Throat Exam: normal ENT inspection Neck Exam: normal inspection, full range of motion Respiratory Exam: normal breath sounds, lungs clear Cardiovascular Exam: regular rate/rhythm, normal heart sounds Extremity Exam: other (1.5 cm right first metacarpophalangeal joint dorsal aspect laceration. Intact range of motion. Distal neurovascular intact. 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 Skin Exam: normal color SpO2 Interpretation: normal SpO2: 98 O2 Delivery: Room Air Procedures - Laceration/Wound Repair Right Finger Time of Procedure: 18:09 Wound Location: Right, hand Wound Length (cm): 1.5 Wound's Depth, Shape: superficial, linear Wound Explored: clean Irrigated: Yes Hibiclens Prep: Yes Anesthesia: 1% Lidocaine Volume Anesthetic (ccs): 2 Wound Repaired With: sutures Suture Size/Type: 4-0 Number of Sutures: 3 Sterile Dressing Applied?: Yes Splint Applied?: Yes Type of Splint Applied: Premade aluminum Ordered Tests: Medication Summary Discontinued Medications Generic Name Dose Route Start Last Admin Trade Name Kush PRN Reason Stop Dose Admin Lidocaine HCl Confirm 10/26/23 18:01 Lidocaine Hcl 1% 20 Ml Mdv 20 Ml Ml Administered 10/26/23 18:02 Dose 5 ml .ROUTE .STK-MED ONE - Progress Progress: improved Progress Note: 10/26/23 18:52 23 years old is evaluated for right thumb laceration. Intact range of motion. No joint exposed. Superficial. Do not think needs imaging. Thoroughly cleaned and repaired. Placed in splint. Wound care discussed. Stable for discharge. Counseled pt/family regarding: diagnosis, need for follow-up Medical Desision Making - Risk of complications The pt has a mod risk of morbidity or mortality based on: Need for minor surgical intervention in patient with know risk factors - Departure Departure Disposition: Home Clinical Impression: Laceration of thumb Condition: Stable Critical Care Time: No Referrals: CLAUDIA RAMIREZ NP [Primary Care Provider] - Follow up with PCP 1 day Instructions: Laceration Repair With Stitches (DC) Additional Instructions: Keep it clean dry. Tylenol/ibuprofen as needed. Follow-up with primary care for reevaluation. Return to ER for intractable pain swelling redness discharge/fever chills etc.
[2023-10-26 19:06] VITALS: BP 136/93; PULSE 104
== END 2023-10-26 19:10 | disposition home or self-care (01) ==
LOC: ED 15:41
DX: S61.011A Laceration without foreign body of right thumb without damage to nail, initial encounter (principal); W26.9XXA Contact with unspecified sharp object(s), initial encounter; Z79.899 Other long term (current) drug therapy
CPT/HCPCS: 12001; 99282

== ENCOUNTER 2023-12-07 13:09 | Emergency (ER) | payer OTHER ==
[2023-12-07 13:19] VITALS: RESP 20; TEMP 98
--- NOTE | 2023-12-07 14:04 | XRAY ---
Indication: Fever. Comparison: November 21, 2023 Portable apical lordotic chest again demonstrates normal heart, lungs, and bony thorax.
[2023-12-07 14:31] LABS: Group A Strep NOT DETECTED (NEGATIVE)
[2023-12-07 14:43] LABS: INFLUENZA A NEGATIVE (NEGATIVE); INFLUENZA B NEGATIVE (NEGATIVE); RESPIRATORY SYNCTIAL VIRUS NEGATIVE (NEGATIVE); SARS-CoV-2 Xpert Express NEGATIVE (NEGATIVE)
[2023-12-07 15:05] VITALS: BP 118/78; PULSE 92; O2SAT 97
--- NOTE | 2023-12-07 15:48 | ERPHSYRPT ---
- History of Present Illness Time Seen by Provider: 12/07/23 13:25 Source: patient Exam Limitations: no limitations Patient Subjective Stated Complaint: Pt states "for the past two weeks I have been feeling horrible. I went to the [facility] care got some meds did not feel any better so monday I went and saw [facility] and got more meds and I am not any better. " Triage Nursing Assessment: PT presented alert and oriented X 3, skin pwd. Pt ambulates with an upright steady gait. Pt complaints of headache, congestion, pounding in her hears, muscle aches. Physician History: Patient is a 23-year-old white female who has been sick for a couple of weeks and has been seen on a couple of occasions and given 2 antibiotics. Her symptoms primarily consist of cough congestion Her workup consisted only of a chest x-ray on the and she has not received any swabs or lab test.and fever. Allergies/Adverse Reactions: cinnamon Allergy (Verified 10/26/23 17:06) diclofenac Adverse Reaction (Severe, Verified 10/26/23 17:06) Diarrhea Vomitin and diarrhea tape Allergy (Uncoded 10/26/23 17:06) Home Medications: Escitalopram Oxalate [Lexapro] 10 mg PO DAILY 05/06/21 [History] Topiramate [Topamax] 50 mg PO DAILY 05/06/21 [History] Atorvastatin Calcium [Lipitor 20MG Tablet] 1 tab PO DAILY 10/26/23 [History] Norgestrel-Ethinyl Estradiol [[id number] Tablet] 1 tab PO DAILY 10/26/23 [History] Metformin HCl 500 mg [Glucophage 500 MG] 500 mg PO BIDWM 12/07/23 [History] Hx Tetanus, Diphtheria Vaccination/Date Given: Yes Hx Influenza Vaccination/Date Given: Yes Hx Pneumococcal Vaccination/Date Given: No Immunizations Up to Date: Yes Travel Risk - International Travel Have you traveled outside of the country in past 3 weeks: No - Emerging Infectious Disease Are you exhibiting symptoms associated with any current EIDs: Yes Symptoms: Headaches/Body Aches/ - Review of Systems Constitutional: Fever, Chills Eyes: No Symptoms Ears, Nose, & Throat: Nose Congestion, Sinus Drainage Respiratory: Cough Cardiac: No Chest Pain, No Edema, No Syncope Abdominal/Gastrointestinal: No Abdominal Pain, No Nausea, No Vomiting, No Diarrhea Genitourinary Symptoms: No Dysuria Musculoskeletal: No Back Pain, No Neck Pain Skin: No Rash Neurological: No Dizziness, No Focal Weakness, No Sensory Changes Psychological: No Symptoms Endocrine: No Symptoms Hematologic/Lymphatic: No Symptoms Immunological/Allergic: No Symptoms - Past Medical History Pertinent Past Medical History: Yes Neurological History: Migraines ENT History: No Pertinent History Cardiac History: No Pertinent History Respiratory History: Asthma Endocrine Medical History: No Pertinent History Musculoskeletal History: Fractures GI Medical History: Gallbladder Disease History: No Pertinent History Psycho-Social History: Depression, Other Female Reproductive Disorders: Abnormal Uterine Bleeding Other Medical History: right hip pain chronic. post depression - Past Surgical History Past Surgical History: Yes Neuro Surgical History: No Pertinent History Cardiac: No Pertinent History Respiratory: No Pertinent History Gastrointestinal: Cholecystectomy, Hernia Repair Genitourinary: No Pertinent History Musculoskeletal: Orthopedic Surgery Female Surgical History: Dilation & Curettage Other Surgical History: right hip, D & C 02/02 Significant Family History: no pertinent family hx - Female History Hx Last Menstrual Period: 11/13/2023 Hx Now: No - Social History Smoking Status: Never smoker Exposure to second hand smoke: No Drug Use: none Patient Lives Alone: No - Nursing Vital Signs Nursing Vital Signs: Initial Vital Signs Temperature 98.0 F 12/07/23 13:14 Pulse Rate 106 H 12/07/23 13:14 Respiratory Rate 20 12/07/23 13:14 Blood Pressure 127/77 12/07/23 13:14 O2 Sat by Pulse Oximetry 98 12/07/23 13:14 Pain Scale Pain Intensity 4 - Physical Exam General Appearance: mild distress, alert Eye Exam: PERRL/EOMI, eyes nml inspection Ears, Nose, Throat Exam: normal ENT inspection, TMs normal, pharynx normal, moist mucous membranes Neck Exam: normal inspection, non-tender, supple, full range of motion Respiratory Exam: normal breath sounds, lungs clear, No respiratory distress Cardiovascular Exam: regular rate/rhythm, normal heart sounds Gastrointestinal/Abdomen Exam: soft, No tenderness Back Exam: normal inspection, No CVA tenderness, No vertebral tenderness Extremity Exam: normal inspection, normal range of motion Neurologic Exam: alert, oriented x 3, cooperative, normal mood/affect, sensation nml, No motor deficits Skin Exam: normal color, warm, dry, No rash Lymphatic Exam: No adenopathy SpO2: 97 - Course Nursing assessment & vital signs reviewed: Yes - Radiology Exams Chest X-ray Interpretation: Reviewed by me Ordered Tests: Active Orders 24 hr Category Date Time Status CHEST 1 VIEW (PORTABLE) Stat Exams 12/07/23 13:24 Completed Lab/Rad Data: Laboratory Results 12/07/23 Range/Units 14:03 Influenza Type A Ag NEGATIVE (NEGATIVE) Influenza Type B Ag NEGATIVE (NEGATIVE) RSV (PCR) NEGATIVE (NEGATIVE) SARS-CoV-2 (PCR) NEGATIVE (NEGATIVE) Group A Strep Antibody NOT DETECTED (NEGATIVE) - Progress Progress: improved Air Movement: good Blood Culture(s) Obtained: No Antibiotics given: Yes Medical Desision Making - Diagnostic Testing Diagnostic test were ordered, analyzed, and reviewed by me: Yes Radiological Interpretation: Reviewed by me, Teleradiologist Report - Risk of complications Minimal Risk: Minimal risk of morbidity - Departure Departure Disposition: Home Clinical Impression: Sinusitis Condition: Stable Critical Care Time: No Referrals: CLAUDIA RAMIREZ NP [Primary Care Provider] - Follow up/PCP as directed Instructions: Sinusitis, Adult (DC) Prescriptions: Doxycycline Hyclate 100 mg [Vibramycin 100 MG] 100 mg PO BID 78 Days #14 tab
== END 2023-12-07 15:55 | disposition home or self-care (01) ==
LOC: ED 13:09
DX: J32.9 Chronic sinusitis, unspecified (principal); R05.9 Cough, unspecified; Z79.84 Long term (current) use of oral hypoglycemic drugs; Z79.899 Other long term (current) drug therapy
CPT/HCPCS: 0241U; 71045; 87651; 99283

== ENCOUNTER 2024-03-13 13:08 | Emergency (ER) | payer OTHER ==
[2024-03-13 13:17] VITALS: RESP 20; TEMP 97.5; O2SAT 100
--- NOTE | 2024-03-13 13:20 | ERPHSYRPT ---
- History of Present Illness Time Seen by Provider: 03/13/24 13:10 Source: patient Exam Limitations: no limitations Physician History: Pt states about 45 minutes ago at work([employer]) her pant leg got caught on the door and she fell hitting the back of her head with resultant headache, nausea and vomiting x2 without blood; LOC, seizure, chest pain, back pain, shortness of air, abdominal pain all denied. Allergies/Adverse Reactions: Sulfa (Sulfonamide Antibiotics) Allergy (Severe, Verified 03/13/24 13:18) Hives cinnamon Allergy (Verified 10/26/23 17:06) diclofenac Adverse Reaction (Severe, Verified 10/26/23 17:06) Diarrhea Vomitin and diarrhea tape Allergy (Uncoded 10/26/23 17:06) Home Medications: Escitalopram Oxalate [Lexapro] 10 mg PO DAILY 05/06/21 [History] Topiramate [Topamax] 50 mg PO DAILY 05/06/21 [History] Norgestrel-Ethinyl Estradiol [[id number] Tablet] 1 tab PO DAILY 10/26/23 [History] Metformin HCl 500 mg [Glucophage 500 MG] 500 mg PO BIDWM 12/07/23 [History] Ezetimibe 10 mg [Zetia 10 MG] 10 mg PO DAILY 03/13/24 [History] Hx Tetanus, Diphtheria Vaccination/Date Given: Yes Hx Influenza Vaccination/Date Given: Yes Hx Pneumococcal Vaccination/Date Given: No Travel Risk - Emerging Infectious Disease Are you exhibiting symptoms associated with any current EIDs: Yes Symptoms: Headaches/Body Aches/ - Review of Systems Ears, Nose, & Throat: No Ear Pain, No Ear Discharge, No Throat Pain Respiratory: No Dyspnea Cardiac: No Chest Pain Abdominal/Gastrointestinal: Nausea, Vomiting, No Abdominal Pain Genitourinary Symptoms: No Dysuria Musculoskeletal: No Back Pain Skin: Other (superficial abrasion to right elbow today) Neurological: Headache - Past Medical History Pertinent Past Medical History: Yes Neurological History: Migraines ENT History: No Pertinent History Cardiac History: No Pertinent History Respiratory History: Asthma Endocrine Medical History: No Pertinent History Musculoskeletal History: Fractures GI Medical History: Gallbladder Disease History: No Pertinent History Psycho-Social History: Depression, Other Female Reproductive Disorders: Abnormal Uterine Bleeding Other Medical History: right hip pain chronic. post depression - Past Surgical History Past Surgical History: Yes Neuro Surgical History: No Pertinent History Cardiac: No Pertinent History Respiratory: No Pertinent History Gastrointestinal: Cholecystectomy, Hernia Repair Genitourinary: No Pertinent History Musculoskeletal: Orthopedic Surgery Female Surgical History: Dilation & Curettage Other Surgical History: right hip, D & C 02/02 Significant Family History: no pertinent family hx - Female History Hx Last Menstrual Period: 03/23/14 - Social History Smoking Status: Never smoker Exposure to second hand smoke: No Drug Use: none Patient Lives Alone: No - Social Determinants of Health Will the patient participate in the screening: Yes Do you worry about a steady place to live?: No In the past 12 months,have you had to go without utilities?: No Transportation Issues: No Has anyone in your support network made you feel unsafe?: No Have you or anyone in your house had to go without enough: No - Nursing Vital Signs Nursing Vital Signs: Initial Vital Signs Temperature 97.5 F 03/13/24 13:09 Pulse Rate 106 H 03/13/24 13:09 Respiratory Rate 20 03/13/24 13:09 Blood Pressure 142/102 03/13/24 13:09 O2 Sat by Pulse Oximetry 100 03/13/24 13:09 Pain Scale Pain Intensity 5 - Mg Coma Score Best Eye Response (Altus): (4) open spontaneously Best Verbal Response (Mg): (5) oriented Best Motor Response (Altus): (6) obeys commands Mg Total: 15 - Physical Exam General Appearance: alert Head Injury: tenderness (mild tenderness over left upper occipital area) Eye Exam: bilateral eye: PERRL, EOMI ENT Exam: airway nml, hearing grossly normal, No dental injury, No clear fluid (nose) Neck Exam: trachea midline Cardiovascular/Respiratory Exam: normal breath sounds, heart sounds normal Gastrointestinal/Abdominal Exam: soft (B.S. 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 hearing, normal speech, PERRL, tongue midline Motor/Sensory Exam: no motor deficit, no sensory deficit Skin Exam: other (superficial abrasion to right elbow) - Radiology Exams Right Elbow X-ray Interpretation: Discussed w/ radiologist (Normal bones, articulation and soft tissues.) - CT Exams Head CT Interpretation: Discussed w/radiologist (Normal CT Head without contrast exam.) Cervical Spine CT Interpretation: Discussed w/radiologist (Normal CT Cervical spine.) Ordered Tests: Active Orders 24 hr Category Date Time Status CERVICAL SPINE WO CONTRAST [CT] Stat Exams 03/13/24 13:15 Completed ELBOW (MINIMUM 3 VIEWS) Stat Exams 03/13/24 13:20 Completed HEAD WITHOUT CONTRAST [CT] Stat Exams 03/13/24 13:15 Completed Medication Summary Discontinued Medications Generic Name Dose Route Start Last Admin Trade Name Freq PRN Reason Stop Dose Admin Ondansetron HCl 4 mg 03/13/24 13:16 03/13/24 13:24 Zofran 4 Mg/Udtablet Orally Disintegrating PO 03/13/24 13:17 4 mg STAT ONE Administration Ondansetron HCl Confirm 03/13/24 13:24 Zofran 4 Mg/Udtablet Orally Disintegrating Administered 03/13/24 13:25 Dose 4 mg .ROUTE .STK-MED ONE - Progress Progress: improved Counseled pt/family regarding: diagnosis, need for follow-up, rad results Medical Desision Making - Diagnostic Testing Diagnostic test were ordered, analyzed, and reviewed by me: Yes Radiological Interpretation: Discussed w/ radiologist - Departure Departure Disposition: Home Clinical Impression: Head contusion, Right elbow abrasion Condition: Stable Critical Care Time: No Referrals: CLAUDIA RAMIREZ NP [Primary Care Provider] - Follow up/PCP as directed Instructions: Head Injury in Adults (DC), Abrasions ED Additional Instructions: Follow up with private doctor tomorrow. Forms: Work/School Release Form
[2024-03-13] MEDS: ZOFRAN ODT 4 MG PO ONE (13:24)
[2024-03-13] MEDS ORDERED: ZOFRAN ODT 4 MG ONE (13:24)
--- NOTE | 2024-03-13 13:38 | XRAY ---
Indication: Pain following fall. Comparison: September 09, 2018 3 view right elbow again demonstrates normal bones, articulation, and soft tissues.
[2024-03-13 14:35] VITALS: BP 135/92; PULSE 94
--- NOTE | 2024-03-13 14:45 | XRAY ---
Indication: Status post fall. Multiple contiguous axial images obtained through the head without contrast. Comparison: None Normal brain parenchyma, ventricles, and bony calvarium. Visualized paranasal sinuses and mastoid air cells are clear. Impression: Normal CT head without contrast exam.
--- NOTE | 2024-03-13 14:45 | XRAY ---
Indication: Status post fall. Multiple contiguous axial images obtained through the cervical spine. Sagittal and coronal reformatted images obtained. Comparison: None Normal appearing bones, articulation, and noncontrasted soft tissues. Impression: Normal CT cervical spine.
== END 2024-03-13 15:08 | disposition home or self-care (01) ==
LOC: ED 13:08
DX: S00.93XA Contusion of unspecified part of head, initial encounter (principal); S50.311A Abrasion of right elbow, initial encounter; W01.0XXA Fall on same level from slipping, tripping and stumbling without subsequent striking against object, initial encounter; Y92.149 Unspecified place in prison as the place of occurrence of the external cause; Y99.0 Civilian activity done for income or pay; R11.2 Nausea with vomiting, unspecified; R51.9 Headache, unspecified; Z79.84 Long term (current) use of oral hypoglycemic drugs; Z79.899 Other long term (current) drug therapy
CPT/HCPCS: 70450; 72125; 73080; 99283; Q0162